=== PATIENT | female | born 1955 | race Caucasian/White ===

== ENCOUNTER 2018-10-18 11:52 | Inpatient (IN) ==
[2018-10-18 12:23] LABS: BLOOD TYPE ARTERIAL; SAMPLE BLOOD
[2018-10-18 12:24] LABS: HCO3-(ACT) 28.7 mmoll (20.0-26.0); METHB 1.1 % (0.0-1.5); O2(CT) 19.6 mL/dL (15.0-23.0); O2HB 94.7 % (95.0-99.0); PCO2(98.6) 44 mmHg (35-45); PO2(98.6) 86 mmHg (60-100); SAO2 97.8 % (95.0-100.0); THB 14.7 g/dL (11.5-17.4); pH(98.6) 7.44 (7.35-7.45)
[2018-10-18 12:26] LABS: ALLEN TEST YES; MODALITY CANNULA
[2018-10-18 12:53] LABS: BASO# 0.03 X1000 (0.0-0.2); BASO% 0.2 % (0.0-0.8); EOS# 0.14 X1000 (0.0-0.7); EOS% 1.1 % (0.0-10.0); HEMATOCRIT 41.6 % (37.0-47.0); IMM GRAN# 0.07 X1000 (0.0-0.04); IMM GRAN% 0.6 % (0.0-0.5); LYMPH# 1.24 X1000 (1.2-3.4); LYMPH% 9.8 % (20.5-51.1); MCHC 33.7 g/dL (33-37); MONO# 0.53 X1000 (0.11-0.59); MONO% 4.2 % (1.7-9.3); MPV 9.6 FL (7.4-10.4); NEUT# 10.66 X1000 (1.4-6.5); NEUT% 84.1 % (42.2-75.2); PLT 290 X1000 (130-400); RBC 4.52 XMIL (4.2-5.4); RDW 13.2 % (11.5-14.5); WBC 12.67 X1000 (4.8-10.8)
[2018-10-18 13:20] LABS: AGAP 12; ALBUMIN 4.4 g/dL (3.5-5.0); ALKALINE PHOSPHATASE 60 U/L (32-104); BUN 8 mg/dL (8-22); CALCIUM 9.6 mg/dL (8.8-10.2); CHLORIDE 97 mmol/L (98-107); COSMO 277; CREATININE 0.8 mg/dL (0.5-0.9); ESTIMATED GFR > 60; GLUCOSE 110 mg/dL (70-104); GOT 13 U/L (10-30); GPT 12 U/L (10-36); POTASSIUM 3.9 mmol/L (3.5-5.1); SODIUM 139 mmol/L (136-145); TCO2 30 mmol/L (25-35); TOTAL PROTEIN 7.2 g/dL (6.3-8.3)
--- NOTE | 2018-10-18 13:47 | Diag Imaging Result Doc PS360 ---
EXAM: CHEST-2 VIEWS - 10/18/2018 HISTORY: copd sob TECHNIQUE: Chest two views COMPARISON: 03/15/2015 FINDINGS: Heart size is normal. There are COPD changes with mildly hyperexpanded lungs. There is mild scarring which is most prominent at the bases. The lungs appear to be clear of acute changes. There is no pleural effusion or pneumothorax identified. IMPRESSION: COPD changes and mild scarring. No acute changes. Electronically signed by Ramy Carter 10/18/2018 1:45 PM
--- NOTE | 2018-10-18 14:28 | PROVIDER DOCUMENTATION ---
This chart was entered by Sharon Loera Scribe, acting as scribe for Sanjay Carreno MD. HPI-Respiratory General - General Chief Complaint: General Adult Stated Complaint: SOB / COPD Time Seen by Provider: 10/18/18 12:11 Source: patient Allergies/Adverse Reactions: Patient Allergies Allergy/AdvReac Type Severity Reaction Status Date / Time Penicillins Allergy Mild HIVES Verified 03/15/15 00:31 Home Medications: Home Medication List Medication Instructions Recorded Confirmed Last Taken Type Albuterol Sulfate [Ventolin Hfa] 60 puff IH PRN PRN 07/05/14 03/15/15 Unknown History Bisoprolol Fumarate/Hctz 1 each PO DAILY 07/05/14 03/15/15 07/05/14 05:30 History [Bisoprolol-Hctz 5-6.25 mg Tab] Doxycycline [Vibramycin] 100 mg PO BID #20 tablet 07/05/14 03/15/15 Unknown Rx Ibuprofen [Motrin] 600 mg PO Q6H 07/05/14 03/15/15 07/05/14 05:30 History Ipratropium/Albuterol INH 1 puff INH RTQ6H 07/05/14 03/15/15 07/05/14 05:30 History [Combivent Respimat Inhaler] Levothyroxine [Synthroid] 50 microgm PO DAILY 07/05/14 03/15/15 07/05/14 05:30 History PRAVAstatin [Pravachol] 20 mg PO DAILY 07/05/14 03/15/15 07/05/14 05:30 History Prednisone 20 mg PO BID #10 tablet 07/05/14 03/15/15 Unknown Rx Azithromycin [Zithromax Z-Frankie] 250 mg PO DIRECTED #1 pkg 03/15/15 Unknown Rx Methylprednisolone [Medrol Dosepak] 4 mg PO DIRECTED #1 package 03/15/15 Unknown Rx - History of Present Illness-Resp Nature of Presenting Problem: 63 y/o female with history of COPD presents to the ED with complaint of increasing SOB. The patient states she has been sick with sinus congestion for the past week and feels as if she has had some fever but did not measure it with SOB worsening since last night causing her to be unable to sleep. The patient is on 2 liters oxygen continuously at home as well as takes nebulizer treatments. The patient states her O2 sats drop into the low 80s when walking but returns to 97 percent when sitting. Allergy to penicillin. Severity in ED: reports: moderate Onset/Duration: reports: 1 week ago (worsening since last night) Timing: reports: getting worse Episode Frequency: chronic episodes Current Respiratory Medication Therapy: Initiated see nurses note Modifying Factors: worse with: exertion Associated Symptoms: reports: shortness of breath Similar Symptoms Previously?: Yes Recently seen or treated by another doctor?: No Review of Systems - Adult - REVIEW OF SYSTEMS - ADULT Constitutional: reports: fever (not measured). denies: weight gain, weight loss Eyes: reports: no symptoms reported Ears, Nose, Mouth & Throat: reports: no symptoms reported Cardiovascular: reports: no symptoms reported Respiratory: reports: dyspnea on exertion, shortness of breath. denies: hemoptysis Gastrointestinal: denies: diarrhea, nausea, vomiting Genitourinary: reports: no symptoms reported Musculoskeletal: reports: no symptoms reported Integumentary: reports: no symptoms reported Neurological: reports: no symptoms reported Psychiatric: reports: no symptoms reported Endocrine: reports: no symptoms reported Hematologic/Lymphatic: reports: no symptoms reported Allergic/Immunologic: reports: no symptoms reported All Other Systems: Reviewed and Negative Past History - Adult - PAST MEDICAL HISTORY-ADULT Review of Records: reports: Old Records Reviewed, Nursing Assessment Review, Medications Reviewed Cardiovascular: reports: hyperlipidemia. denies: cardiac disease, CAD Respiratory: reports: COPD, pneumonia Endocrine/Immune: reports: thyroid disorder. denies: Diabetes - IMMUNIZATION STATUS Childhood Immunizations: See Nurse Assessment Flu Vaccine: See Nurse Assessment - SOCIAL HISTORY Smoking: other (former smoker) Substance Use: denies Physical Exam-General - PHYSICAL EXAM-ADULT Initial Vital Signs Reviewed: Yes - CONSTITUTIONAL General Appearance: alert, moderate distress - EYES Eyes: PERRL/EOMI - HEAD, EARS, NOSE, MOUTH & THROAT HENMT: normocephalic/atraumatic, moist mucous membranes - NECK Neck: full range of motion, supple - RESPIRATORY Respiratory: other (egophony right lower lobe,minimal air movement, hyperinflated, whispered pectorliquy) - CARDIOVASCULAR Cardiovascular: no gallop, no murmur - MUSCULOSKELETAL Back Exam: no vertebral tenderness, other (scar from previous surgery) - SKIN Integumentary: normal color, warm/dry - NEUROLOGIC Neurologic: grossly normal Progress - PLAN OF CARE/RESULTS Progress/Plan/Lab Results: Vital Signs - 8 hr 10/18/18 11:59 10/18/18 12:47 10/18/18 14:03 Temperature 98 F Pulse Rate 74 71 74 Respiratory Rate 20 26 H 30 H Blood Pressure 160/78 155/77 158/94 O2 Sat by Pulse Oximetry 96 98 99 Laboratory Results - last 24 hr 10/18/18 10/18/18 10/18/18 12:08 12:33 12:33 WBC 12.67 H RBC 4.52 Hgb 14.0 Hct 41.6 MCV 92.0 MCH 31.0 MCHC 33.7 RDW Std Deviation 13.2 Plt Count 290 MPV 9.6 Immature Gran % (Auto) 0.6 H Neut % (Auto) 84.1 H Lymph % (Auto) 9.8 L [place] % (Auto) 4.2 Eos % (Auto) 1.1 Baso % (Auto) 0.2 Immature Gran # (Auto) 0.07 H Neut # (Auto) 10.66 H Lymph # (Auto) 1.24 [place] # (Auto) 0.53 Eos # (Auto) 0.14 Baso # (Auto) 0.03 Specimen Type ARTERIAL Sample Site L RADIAL pH 7.44 pCO2 44 pO2 86 HCO3 28.7 H Base Excess 5.0 H Oxyhemoglobin 94.7 L ABG O2 Sat (Calculated) 19.6 ABG O2 Saturation 97.8 ABG Carboxyhemoglobin 2.10 ABG Methemoglobin 1.1 Vikas Test YES A-a O2 Difference 59.0 Total Hemoglobin 14.7 Lactate 1.70 Liter Flow 2.0 Blood Gas Modality CANNULA FiO2 % 28.0 Sodium 139 Potassium 3.9 Chloride 97 L Carbon Dioxide 30 Anion Gap 12 BUN 8 Creatinine 0.8 Estimated GFR/1.73 m2 > 60 BUN/Creatinine Ratio 10 Glucose 110 H Calculated Osmolality 277 Calcium 9.6 Total Bilirubin 0.30 AST 13 ALT 12 Alkaline Phosphatase 60 [id number]-Hvxqvxmntgi Pept Total Protein 7.2 Albumin 4.4 Globulin 3.0 Albumin/Globulin Ratio 2.0 10/18/18 12:33 WBC RBC Hgb Hct MCV MCH MCHC RDW Std Deviation Plt Count MPV Immature Gran % (Auto) Neut % (Auto) Lymph % (Auto) [place] % (Auto) Eos % (Auto) Baso % (Auto) Immature Gran # (Auto) Neut # (Auto) Lymph # (Auto) [place] # (Auto) Eos # (Auto) Baso # (Auto) Specimen Type Sample Site pH pCO2 pO2 HCO3 Base Excess Oxyhemoglobin ABG O2 Sat (Calculated) ABG O2 Saturation ABG Carboxyhemoglobin ABG Methemoglobin Vikas Test A-a O2 Difference Total Hemoglobin Lactate Liter Flow Blood Gas Modality FiO2 % Sodium Potassium Chloride Carbon Dioxide Anion Gap BUN Creatinine Estimated GFR/1.73 m2 BUN/Creatinine Ratio Glucose Calculated Osmolality Calcium Total Bilirubin AST ALT Alkaline Phosphatase [id number]-Fphfrrlpdbd Pept 347 H Total Protein Albumin Globulin Albumin/Globulin Ratio Orders Category Date Time Status Cardiac Monitoring DIRECTED Care 10/18/18 12:02 Active Oxygen Therapy- ED Nursing DIRECTED Care 10/18/18 12:04 Active CHEST-2 VIEWS [RAD] Stat Exams 10/18/18 12:02 Completed ABG [RESP] Routine Lab 10/18/18 12:08 Completed CBC WITH DIFF [HEME] Stat Lab 10/18/18 12:33 Completed COMPREHENSIVE METABOLIC PANEL [CHEM] Stat Lab 10/18/18 12:33 Completed PRO B-NATRIURETIC PEPTIDE Stat Lab 10/18/18 12:33 Completed EKG [EKG] Stat Ther 10/18/18 12:02 Ordered Transfer/Admit Order [TRANSFER] Routine Transfer 10/18/18 14:20 Ordered 1415 The patient's respiratory rate is 28. Will consult with Dr. Stuart. Result Diagrams: 10/18/18 12:33 10/18/18 12:33 - EKG 1 Time of EKG reading by physician:: 12:27 EKG Read and Signed by:: Sanajy Carreno EKG Interpretation (*Must complete 3 of following elements*): Abnormal Rate: 67 Rhythm: sinus w/arrhythmia w/occasional PVC [place]: normal ST Wave: non-specific ST changes - XRAY 1 XRAY Study: Chest Impression: Abnormal (EXAM: CHEST-2 VIEWS - 10/18/2018 HISTORY: copd sob TECHNIQUE: Chest two views COMPARISON: 03/15/2015 FINDINGS: Heart size is normal. There are COPD changes with mildly hyperexpanded lungs. There is mild scarring which is most prominent at the bases. The lungs appear to be clear of acute changes. There is no pleural effusion or pneumothorax identified. IMPRESSION: COPD changes and mild scarring. No acute changes. Electronically signed by Ramy Carter 10/18/2018 1:45 PM) - CONSULTS/PCP/HOSPITALIST Notification #1 *Consult/PCP/Hospitalist*: Dr. Stuart Time Discussed: 14:18 Reason/Comments: COPD, respiratory rate 28 Consult Disposition: Admit Departure - Departure Date of Disposition Decision: 10/18/18 Time of Disposition Decision: 14:20 DIAGNOSIS: COPD with exacerbation Disposition: ADMITTED INPATIENT 09 Certified Medical Emergency: Emergent Condition: Stable Referrals and Follow-Ups: Mik Lam MD [Primary Care Provider] - - Critical Care Note This patient required my direct & personal management of CC.: No Attestation - Physician/ OZIEL Attestation Patient care was provided by Advanced Practice Provider:: No The physician spent face to face time with patient:: Yes Advanced Practice Provider documentation review:: Supervising physician onsite and consulted in the evaluation and care of this patient. The physician did have a face to face encounter with the patient. This chart was documented by the indicated scribe, (Sharon Loera, Vlad) and accurately reflects the services I performed and decisions made by me, Sanjay Carreno MD, as attested by the provider's signature.
[2018-10-18] MEDS ORDERED: ROCEPHIN 1 GM in NS 50 ML IV ONE (15:21)
[2018-10-18] MEDS ORDERED: SOLU-MEDROL IV ONE (15:21)
[2018-10-18] MEDS: DUONEB (A & A) INH SCH ×3 (15:33→22:51)
--- NOTE | 2018-10-18 15:56 | EKG Report ---
Test Performed on : 10/18/2018 12:27:39 PM Test Reason : copd sob Blood Pressure : / mmHG Vent. Rate : 067 BPM Atrial Rate : 067 BPM P-R Int : 150 ms QRS Dur : 094 ms QT Int : 388 ms P-R-T Axes : 005 072 132 degrees QTc Int : 409 ms Sinus rhythm. with sinus arrhythmia. with occasional premature ventricular complexes. Nonspecific ST and T wave abnormality Abnormal ECG When compared with ECG of 05-JUL-2014 06:55, premature ventricular complexes. are now present premature supraventricular complexes. are no longer present Nonspecific T wave abnormality now evident in Inferior leads Nonspecific T wave abnormality, worse in Anterolateral leads Unconfirmed Result
[2018-10-18] MEDS ORDERED: DUONEB (A & A) INH PRN ×2 (18:40→21:07)
[2018-10-18] MEDS ORDERED: SALINE LOCK IV FLUID XX ONE (21:06)
[2018-10-18] MEDS ORDERED: ZOFRAN IV PRN (21:07)
[2018-10-18] MEDS ORDERED: TYLENOL PO PRN (21:07)
[2018-10-18] MEDS: SOLU-MEDROL IV SCH (22:07)
--- NOTE | 2018-10-18 23:11 | HISTORY AND PHYSICAL ---
CHIEF COMPLAINT: Shortness of breath. HISTORY OF PRESENT ILLNESS: Patient is a very pleasant elderly female who has a known history of COPD. She presented to the hospital with chief complaint of shortness of breath, cough, congestion. Notes that she is only on 2 L at home. She has breathing treatments which she has been using. States, however, she has been increasing work of breathing, increased shortness of breath for the past 2 weeks or so and it continued to worsen over the past 2 days, which was the impetus for her to come to the ER. Denies any chest pains. ALLERGIES: Penicillin causing hives. MEDICATIONS: 1. Albuterol. 2. Bisoprolol/hydrochlorothiazide 5/6.25. 3. Doxycycline although not currently taking. 4. Synthroid 50. 5. Pravachol 20. 6. Nebulized treatments. REVIEW OF SYSTEMS: As noted above. Patient denies any fevers or chills. States she has had increased cough. No real production. No longer smokes. Has not been around smoke, but was around some chemical, [employer], in the past few days. Denies any dysuria, urinary frequency, urgency, hesitancy. Denies constipation, melena, hematochezia. Denies any skin rashes, weight loss or weight gain. PAST MEDICAL HISTORY: Hypothyroidism, hypertension, COPD, hyperlipidemia. FAMILY HISTORY: Positive for COPD. SOCIAL HISTORY: Patient is a former smoker. Does not drink or use illicit substances. PHYSICAL EXAMINATION: VITAL SIGNS: Reviewed and stable. Temperature 98 degrees, pulse 74, respiratory 20, BP 160/78, saturating 96% on 3 L. GENERAL: Patient is a very pleasant. She is awake, alert. She is in mild respiratory distress currently. She was in moderate distress earlier prior to several breathing treatments from the ER. HEENT: Normocephalic. NECK: Supple. CARDIOVASCULAR: Regular rate. No murmurs. CHEST: Currently clear and nonlabored although just received a breathing treatment and she is lying in the bed. She does have decreased breath sounds bilaterally but equal. No current wheezing. No crackles. ABDOMEN: Soft, nondistended. EXTREMITIES: Moves all extremities. NEUROLOGIC: No changes. SKIN: Warm and dry. No rashes. ASSESSMENT: 1. Chronic obstructive pulmonary disease with moderate exacerbation, improved. 2. Acute on chronic hypoxic respiratory failure. 3. Hypertension. 4. Hypothyroidism. 5. High cholesterol. PLAN: We will continue patient in the hospital, breathing treatments, oxygen, steroids and we will follow. We will continue her home medications. cc: Andrez Stuart MD
[2018-10-19] MEDS: DUONEB (A & A) INH SCH ×11 (03:22→23:19)
[2018-10-19] MEDS: SOLU-MEDROL IV SCH ×3 (05:20→22:17)
[2018-10-19 06:58] LABS: BASO# 0.01 X1000 (0.0-0.2); BASO% 0.1 % (0.0-0.8); HEMATOCRIT 42.4 % (37.0-47.0); HEMOGLOBIN 14.3 g/dL (12.0-16.0); IMM GRAN# 0.08 X1000 (0.0-0.04); IMM GRAN% 0.8 % (0.0-0.5); LYMPH# 0.85 X1000 (1.2-3.4); MCH 30.8 PG (27-31); MCHC 33.7 g/dL (33-37); MCV 91.4 FL (81-99); MONO# 0.12 X1000 (0.11-0.59); MONO% 1.1 % (1.7-9.3); MPV 9.5 FL (7.4-10.4); PLT 325 X1000 (130-400); RBC 4.64 XMIL (4.2-5.4); RDW 13.3 % (11.5-14.5); WBC 10.56 X1000 (4.8-10.8)
[2018-10-19 06:59] LABS: LYMPHS 7 % (21-51); SEGS 93 % (42-75)
[2018-10-19 07:03] LABS: AGAP 15; ALBUMIN 4.3 g/dL (3.5-5.0); ALKALINE PHOSPHATASE 58 U/L (32-104); BUN 12 mg/dL (8-22); CALCIUM 9.2 mg/dL (8.8-10.2); CHLORIDE 95 mmol/L (98-107); COSMO 278; CREATININE 0.9 mg/dL (0.5-0.9); ESTIMATED GFR > 60; GLUCOSE 244 mg/dL (70-104); GOT 15 U/L (10-30); GPT 13 U/L (10-36); POTASSIUM 4.2 mmol/L (3.5-5.1); SODIUM 135 mmol/L (136-145); TCO2 25 mmol/L (25-35); TOTAL PROTEIN 7.5 g/dL (6.3-8.3)
[2018-10-19] MEDS: ZOLOFT PO SCH (08:57)
[2018-10-19] MEDS ORDERED: SYNTHROID PO SCH (09:00)
[2018-10-19] MEDS ORDERED: ZIAC 5/6.25 MG PO ONE (17:00)
[2018-10-19] MEDS: LIPITOR PO SCH (22:17)
[2018-10-20] MEDS: DUONEB (A & A) INH SCH ×7 (03:13→22:39)
[2018-10-20 05:29] LABS: AGAP 11; BUN 18 mg/dL (8-22); CALCIUM 9.7 mg/dL (8.8-10.2); CHLORIDE 98 mmol/L (98-107); COSMO 282; CREATININE 0.9 mg/dL (0.5-0.9); ESTIMATED GFR > 60; GLUCOSE 215 mg/dL (70-104); POTASSIUM 4.5 mmol/L (3.5-5.1); SODIUM 137 mmol/L (136-145); TCO2 28 mmol/L (25-35)
[2018-10-20 05:37] LABS: EOS# 0.03 X1000 (0.0-0.7); EOS% 0.2 % (0.0-10.0); HEMATOCRIT 42.6 % (37.0-47.0); HEMOGLOBIN 13.9 g/dL (12.0-16.0); IMM GRAN# 0.14 X1000 (0.0-0.04); IMM GRAN% 0.8 % (0.0-0.5); LYMPH# 0.85 X1000 (1.2-3.4); MCH 30.3 PG (27-31); MCHC 32.6 g/dL (33-37); MCV 92.8 FL (81-99); MONO# 0.61 X1000 (0.11-0.59); MONO% 3.6 % (1.7-9.3); MPV 9.9 FL (7.4-10.4); NEUT# 15.53 X1000 (1.4-6.5); NEUT% 90.4 % (42.2-75.2); PLT 342 X1000 (130-400); RBC 4.59 XMIL (4.2-5.4); RDW 13.4 % (11.5-14.5); WBC 17.16 X1000 (4.8-10.8)
[2018-10-20] MEDS: SYNTHROID PO SCH (06:07)
[2018-10-20] MEDS: ZOLOFT PO SCH ×2 (06:07→11:49)
[2018-10-20] MEDS: SOLU-MEDROL IV SCH ×2 (06:07→14:49)
[2018-10-20] MEDS: LOVENOX SUBQ SCH (06:07)
[2018-10-20] MEDS: ZIAC 5/6.25 MG PO SCH ×2 (06:07→11:49)
[2018-10-20 06:53] LABS: BANDS 1 % (0-1); LYMPHS 7 % (21-51); MONO 2 % (1-9); SEGS 90 % (42-75)
[2018-10-20] MEDS: DULERA 200 MCG/5 MCG INHALER INH SCH (08:15)
[2018-10-20] MEDS ORDERED: SYMBICORT 80/4.5 MICROGM INHALER INH SCH (19:30)
[2018-10-20] MEDS ORDERED: XANAX PO PRN (20:07)
[2018-10-20] MEDS ORDERED: TUMS EXTRA STRENGTH PO PRN (20:07)
[2018-10-20] MEDS: LIPITOR PO SCH (20:42)
[2018-10-21] MEDS: DUONEB (A & A) INH SCH ×6 (02:11→14:46)
[2018-10-21] MEDS: SOLU-MEDROL IV SCH ×2 (03:01→16:33)
[2018-10-21] MEDS: SYNTHROID PO SCH (05:28)
[2018-10-21] MEDS: ZIAC 5/6.25 MG PO SCH ×2 (05:28→08:01)
[2018-10-21] MEDS: ZOLOFT PO SCH ×2 (05:28→08:01)
[2018-10-21] MEDS: LOVENOX SUBQ SCH (05:28)
[2018-10-21 05:56] LABS: BASO# 0.01 X1000 (0.0-0.2); BASO% 0.1 % (0.0-0.8); EOS# 0.02 X1000 (0.0-0.7); EOS% 0.1 % (0.0-10.0); HEMATOCRIT 42.6 % (37.0-47.0); IMM GRAN# 0.16 X1000 (0.0-0.04); IMM GRAN% 1.1 % (0.0-0.5); LYMPH# 0.95 X1000 (1.2-3.4); LYMPH% 6.6 % (20.5-51.1); MCH 30.8 PG (27-31); MCHC 32.9 g/dL (33-37); MCV 93.6 FL (81-99); MONO# 0.76 X1000 (0.11-0.59); MONO% 5.3 % (1.7-9.3); MPV 9.7 FL (7.4-10.4); NEUT# 12.42 X1000 (1.4-6.5); NEUT% 86.8 % (42.2-75.2); PLT 285 X1000 (130-400); RBC 4.55 XMIL (4.2-5.4); RDW 13.5 % (11.5-14.5); WBC 14.32 X1000 (4.8-10.8)
[2018-10-21 05:59] LABS: HEMOGLOBIN A1C 5.9 % (4.8-6.0)
[2018-10-21 06:09] LABS: AGAP 10; BUN 15 mg/dL (8-22); CALCIUM 9.9 mg/dL (8.8-10.2); CHLORIDE 99 mmol/L (98-107); COSMO 282; CREATININE 0.8 mg/dL (0.5-0.9); ESTIMATED GFR > 60; GLUCOSE 139 mg/dL (70-104); SODIUM 140 mmol/L (136-145); TCO2 30 mmol/L (25-35)
[2018-10-21 06:46] LABS: LYMPHS 8 % (21-51); MONO 7 % (1-9); SEGS 85 % (42-75)
[2018-10-21 06:47] LABS: MICROCYTOSIS OCCASIONAL
[2018-10-21] MEDS: DULERA 200 MCG/5 MCG INHALER INH SCH (07:08)
[2018-10-21] MEDS: HUMULIN R (PARKWAY) SUBQ SCH ×4 (08:01→17:55)
[2018-10-21 14:11] VITALS: BP 128/55
--- NOTE | 2018-10-21 15:45 | PROGRESS NOTE ---
DATE: 10/19/2018 SUBJECTIVE: The patient has no major complaints. OBJECTIVE: Vital Signs: Blood pressure is 175/73, heart rate 94, respiratory rate 24, and saturations of 91% on 2 L. Cardiovascular: Regular rate and rhythm. Pulmonary: Bilateral breath sounds are clear to auscultation. GI: Abdomen is soft, nontender, and nondistended. Bowel sounds are positive. LABORATORY DATA: White count is 10. Hemoglobin and hematocrit are 14 and 42. PROBLEM LIST: 1. Acute chronic obstructive pulmonary disease exacerbation. Appears to be improving. We will wean steroids. Continue breathing treatments. She is empirically on antibiotics although I do not think she clearly has an infection based on her chest x-ray as far as she does not have pneumonia. 2. Hypertension. Resume her regular medications and follow. 3. Hypothyroidism. We will check her TSH and follow. DISPOSITION: Anticipate discharge soon. Right now as far as medications she only takes Dulera daily and albuterol p.r.n. We may need to adjust her medicines accordingly. Because she is on Dulera we may need to consider adding a long-acting bronchodilator although the frequency of attacks is not that common. She does not report any dysphagia to me. We will continue to follow closely. cc: William Whyte MD
[2018-10-21] MEDS ORDERED: DOXYCYCLINE PO ONE (15:56)
--- NOTE | 2018-10-22 14:37 | DISCHARGE SUMMARY ---
ADMISSION DATE: 10/18/2018 DISCHARGE DATE: 10/21/2018 ADDENDUM REPORT Discharge addendum. DISCHARGE DIAGNOSES: 1. Chronic obstructive pulmonary disease exacerbation. 2. Chronic hypoxia. Briefly this is a 63-year-old female. She has admitted for COPD exacerbation. Day of discharge, she is still having some little bit intermittent wheezing, but overall improved. She feels good about going home. I think she is stable to go home. We will do a steroid taper, doxycycline. She has not been on any antibiotics while she is here. I think I am going to give her a dose of Rocephin before she goes, and discharge her on some doxycycline. She has had some steroid-induced hyperglycemia. Her A1c is only 5. I encouraged her to follow diabetic diet and get re-evaluated after she follows up with her PCP, and I recommend outpatient pulmonary follow-up as well. This is a [id number] encounter note with Kasey Acevedo. COORDINATION TIME: A 32-minute discharge. cc: William Whyte MD
--- NOTE | 2018-10-23 15:48 | DISCHARGE SUMMARY ---
ADMISSION DATE: 10/18/2018 DISCHARGE DATE: 10/21/2018 ADMISSION DIAGNOSIS: 1. COPD with mild to moderate exacerbation. 2. Acute on chronic hypoxemic respiratory failure. 3. Hypertension. 4. Hypothyroidism. 5. Hyperlipidemia. DISCHARGE DIAGNOSES: 1. Acute on chronic obstructive pulmonary disease exacerbation improving with steroids, nebulizers. There was no obvious infection on the chest x-ray. 2. Hypertension. Continue home medications. 3. Hypothyroidism. CONSULTATIONS: None. SURGERIES AND PROCEDURES: None. HOSPITAL COURSE: Jeanne Mckeon is a 63-year-old female with a medical history of COPD presented with a complaint of shortness of breath, cough, and congestion. She is on continuous home oxygen of 2 L and breathing treatments. She has been using those at home but apparently still had increased work of breathing along with shortness breath for at least 2 weeks prior to admission. There were no chest pains at that time. She was admitted, started on respiratory treatments, oxygen, steroids, and prior to discharge was initiated also on empiric antibiotic therapy. Culture of the sputum was obtained. It did show some gram-positive cocci but otherwise just normal fidelia. White count was up, it went up to as high as 17,000 and was likely steroid induced. It dropped back down to 14,000 prior to discharge. She was afebrile while she was here. Never required more than the 2 L of oxygen that she uses at home. She was improved. She was breathing better and she is ready for discharge home. DISCHARGE VITAL SIGNS: Temperature 98.0 degrees, heart rate 86, respiratory rate 19, blood pressure 128/55, O2 saturation 98% on 2 L nasal cannula. DISCHARGE LABORATORY DATA: White blood cells 14,000, hemoglobin 14, hematocrit 42, platelet count 285,000. Sodium 140, potassium 4.0, BUN 15, creatinine 0.8, glucose 139, calcium 9.9, TSH was 0.21, free T4 was 1.32. PERTINENT IMAGING: Chest x-ray: COPD changes and mild scarring, nothing acute. EKGs showed sinus rhythm with sinus arrhythmia. Occasional PVCs and ventricular rate 67, QTc was 409. MEDICATIONS: 1. Atorvastatin calcium 40 mg p.o. nightly. 2. Bisoprolol/hydrochlorothiazide 1 tab p.o. daily. 3. Dulera 2 puffs inhaled. 4. Sertraline HCL 50 mg p.o. daily. 5. Synthroid 75 mcg p.o. daily. 6. Albuterol/Atrovent nebs every 6 hours as needed. 7. Prednisone taper. 8. Doxycycline 100 mg p.o. twice a day for 7 days. DISCHARGE DIET: Diabetic. Low carb diet while on steroids. DISCHARGE ACTIVITY: As tolerated. DISCHARGE PHYSICIAN FOLLOW UP: Dr. Mik Lam. Follow up with her primary care provider 1 to 2 weeks. DISCHARGE INSTRUCTIONS: If her condition changes, contact physician and/or return to the emergency department. Changes may include, but are not limited to, shortness of breath, increased fatigue, excessive bleeding, unexplained weight loss or gain, vaginal pain, signs or symptoms of infection. Seek attention for worsening dyspnea or shortness of breath. DISCHARGE DISPOSITION: Home. Dictated by TIFFANI Posey for William Whyte MD cc: TIFFANI Posey MD
== END 2018-10-21 17:25 | disposition home or self-care (01) | DRG 191 ==
LOC: P.ED 11:52 → SUATTDRO 11:53 → OBSVTOIN 11:53 → INTOOBSV 11:53 → P.MEDSURG 11:53
PROVIDERS: ATTEND Internal Medicine
CPT/HCPCS: 36415; 71020; 71046; 80048; 80053; 82805; 82948; 83036; 83880; 84439; 84443; 85025; 87070; 87205; 93005; 94640; 94761; 94799; 99285; A9270; J0696; J1650; J1815; J2920; J2930; XXXXX

== ENCOUNTER 2018-11-26 00:41 | Inpatient (IN) ==
[2018-11-26] MEDS ORDERED: SOLU-MEDROL IV ONE (00:49)
[2018-11-26] MEDS ORDERED: DUONEB (A & A) INH ONE ×2 (00:49→01:23)
[2018-11-26] MEDS ORDERED: NS 500 ML IV ONE (00:51)
[2018-11-26 01:05] LABS: BE 2.3 mmoll (-3.0-3.0); BLOOD TYPE ARTERIAL; HCO3-(ACT) 26.6 mmoll (20.0-26.0); METHB 1.5 % (0.0-1.5); O2(CT) 19.1 mL/dL (15.0-23.0); O2HB 94.4 % (95.0-99.0); PO2(98.6) 101 mmHg (60-100); SAMPLE BLOOD; SAO2 98.7 % (95.0-100.0); THB 14.3 g/dL (11.5-17.4); pH(98.6) 7.32 (7.35-7.45)
[2018-11-26 01:08] LABS: ALLEN TEST YES; MODALITY CANNULA; PCO2(98.6) 58 mmHg (35-45)
[2018-11-26] MEDS ORDERED: DUONEB (A & A) ONE (01:17)
[2018-11-26] MEDS ORDERED: ATIVAN IV ONE (01:48)
--- NOTE | 2018-11-26 01:51 | PROVIDER DOCUMENTATION ---
This chart was entered by Zoila Moralez Scribe, acting as scribe for Luis Arita MD. HPI-Respiratory General - General Chief Complaint: Shortness of Breath Stated Complaint: SOB Time Seen by Provider: 11/26/18 00:42 Source: patient Allergies/Adverse Reactions: Patient Allergies Allergy/AdvReac Type Severity Reaction Status Date / Time Penicillins Allergy Mild HIVES Verified 03/15/15 00:31 Home Medications: Home Medication List Medication Instructions Recorded Confirmed Last Taken Type Bisoprolol Fumarate/Hctz 1 each PO DAILY 07/05/14 10/18/18 10/18/18 05:30 History [Bisoprolol-Hctz 5-6.25 mg Tab] Levothyroxine [Synthroid] 75 microgm PO DAILY 07/05/14 10/18/18 10/18/18 05:30 History Atorvastatin Calcium 40 mg PO HS 10/18/18 10/18/18 10/17/18 21:00 History Mometasone/Formoterol [Dulera 200 2 puff INHALATION DAILY 10/18/18 10/18/18 10/18/18 05:30 History Mcg/5 Mcg Inhaler] Sertraline HCl 50 mg PO DAILY 10/18/18 10/18/18 10/18/18 05:30 History Albuterol 2.5MG/Ipratrop 0.5MG 3 ml INH RTQ6H #120 neb 10/21/18 Unknown Rx [Duoneb] Doxycycline 100 mg PO BID #14 tab 10/21/18 Unknown Rx Prednisone See Taper PO DAILY #30 tab 10/21/18 Unknown Rx - History of Present Illness-Resp Nature of Presenting Problem: 63 y/o female presents to ED with SOB onset 1 hour prior to arrival. Pt reports her symptoms woke her up from her sleep. Pt states she has hx COPD. Pt is alert and oriented. Quality of Pain: reports: none Severity in ED: reports: mild Onset/Duration: reports: 1 hour ago Timing: reports: still present Context: reports: other (hx COPD) Exposure: reports: other (hx COPD) Cough Quality/Degree: reports: no cough Episode Frequency: chronic episodes (hx COPD) Current Respiratory Medication Therapy: Initiated see nurses note Modifying Factors: improves with: nothing Associated Symptoms: reports: shortness of breath, short of breath Similar Symptoms Previously?: Yes (hx COPD) Recently seen or treated by another doctor?: No Review of Systems - Adult - REVIEW OF SYSTEMS - ADULT Constitutional: denies: chills, fever Eyes: reports: no symptoms reported Ears, Nose, Mouth & Throat: reports: no symptoms reported Cardiovascular: denies: chest pain, palpitations Respiratory: reports: shortness of breath. denies: cough Gastrointestinal: denies: abdominal pain, diarrhea, nausea, vomiting Genitourinary: reports: no symptoms reported Musculoskeletal: denies: back pain, joint pain Integumentary: reports: no symptoms reported Neurological: denies: dizziness/vertigo, seizure Psychiatric: reports: no symptoms reported Endocrine: reports: no symptoms reported Hematologic/Lymphatic: reports: no symptoms reported Allergic/Immunologic: reports: no symptoms reported All Other Systems: Reviewed and Negative Past History - Adult - PAST MEDICAL HISTORY-ADULT Review of Records: reports: Old Records Reviewed, Nursing Assessment Review, Medications Reviewed Major Childhood Illnesses: reports: denies history Cardiovascular: reports: HTN, hyperlipidemia. denies: cardiac disease, CAD Respiratory: reports: COPD, pneumonia Endocrine/Immune: reports: thyroid disorder. denies: Diabetes Other Conditions: reports: cataract/glaucoma - PRIOR SURGERIES/PROCEDURES Surgical/Procedure History: reports: pacemaker, back/neck, other (cataract removal) - IMMUNIZATION STATUS Childhood Immunizations: See Nurse Assessment Flu Vaccine: See Nurse Assessment - FAMILY HISTORY Family History: reviewed, not pertinent - SOCIAL HISTORY Smoking: quit greater than 1 year Substance Use: none/never Alcohol Use Frequency: never Living Situation: family Physical Exam-General - PHYSICAL EXAM-ADULT Initial Vital Signs Reviewed: Yes - CONSTITUTIONAL General Appearance: alert, moderate distress - EYES Eyes: PERRL/EOMI, pink conjunctivae - HEAD, EARS, NOSE, MOUTH & THROAT HENMT: normocephalic/atraumatic, normal ENT inspection. negative: moist mucous membranes (dry) - NECK Neck: non-tender, full range of motion - RESPIRATORY Respiratory: chest non-tender, respiratory distress (mild), decreased breath sounds, accessory muscle use, wheezing, increased rate - CARDIOVASCULAR Cardiovascular: tachycardia - GASTROINTESTINAL (ABDOMEN) Abdominal Exam: normal bowel sounds, non tender, soft - MUSCULOSKELETAL Back Exam: normal inspection, no CVA tenderness, no vertebral tenderness Extremity: normal range of motion, non-tender, normal gait - SKIN Integumentary: normal color, warm/dry - NEUROLOGIC Neurologic: grossly normal - PSYCHIATRIC Psych/Mental Status: normal mood/affect, normal thought content, normal thought process, oriented x 3 - HEART Score HEART Score: History: Slightly Suspicious HEART Score: ECG: Non-Specific Repolarization Disturbance/LBBB/PM HEART Score: Age: 45-65 Years HEART Score: Risk Factors for Atherosclerotic Disease: 1 or 2 Risk Factors HEART Score: Troponin: < or = Normal Limit Total HEART Score:: 3 Progress - PLAN OF CARE/RESULTS Progress/Plan/Lab Results: Vital Signs - 8 hr 11/26/18 00:42 11/26/18 01:09 11/26/18 03:04 Temperature 98.4 F Pulse Rate 103 H 99 H 113 H Respiratory Rate 26 H 24 16 Blood Pressure 160/104 120/60 O2 Sat by Pulse Oximetry 92 L 97 97 Laboratory Results - last 24 hr 11/26/18 11/26/18 11/26/18 00:40 01:30 01:30 WBC RBC Hgb Hct MCV MCH MCHC RDW Std Deviation Plt Count MPV Immature Gran % (Auto) Neut % (Auto) Lymph % (Auto) [place] % (Auto) Eos % (Auto) Baso % (Auto) Immature Gran # (Auto) Neut # (Auto) Lymph # (Auto) [place] # (Auto) Eos # (Auto) Baso # (Auto) PT INR PTT (Actin FS) Specimen Type ARTERIAL Sample Site L RADIAL pH 7.32 L pCO2 58 H* pO2 101 H HCO3 26.6 H Base Excess 2.3 Oxyhemoglobin 94.4 L ABG O2 Sat (Calculated) 19.1 ABG O2 Saturation 98.7 ABG Carboxyhemoglobin 2.90 H ABG Methemoglobin 1.5 Vikas Test YES A-a O2 Difference 83.0 Total Hemoglobin 14.3 Liter Flow 4.0 Blood Gas Modality CANNULA FiO2 % 36.0 Sodium Potassium Chloride Carbon Dioxide Anion Gap BUN Creatinine Estimated GFR/1.73 m2 BUN/Creatinine Ratio Glucose Calculated Osmolality Calcium Total Bilirubin AST ALT Alkaline Phosphatase Troponin T 0.022 [id number] Pept 872 H Total Protein Albumin Globulin Albumin/Globulin Ratio Plasma Lactate Urine Source Urine Color Urine Clarity Urine pH Ur Specific [place] Urine Protein Urine Ketones Urine Blood Urine Nitrite Urine Bilirubin Urine Urobilinogen Urine Microscopic RBC Urine WBC Urine Microscopic WBC Ur Epithelial Cells Urine Crystals Urine Bacteria Urine Casts Urine Yeast Urine Glucose 11/26/18 11/26/18 11/26/18 01:30 01:30 01:30 WBC 24.77 H RBC 4.61 Hgb 14.3 Hct 43.3 MCV 93.9 MCH 31.0 MCHC 33.0 RDW Std Deviation 14.3 Plt Count 299 MPV 9.6 Immature Gran % (Auto) 0.7 H Neut % (Auto) 84.2 H Lymph % (Auto) 7.7 L [place] % (Auto) 4.4 Eos % (Auto) 2.7 Baso % (Auto) 0.3 Immature Gran # (Auto) 0.17 H Neut # (Auto) 20.86 H Lymph # (Auto) 1.91 [place] # (Auto) 1.08 H Eos # (Auto) 0.68 Baso # (Auto) 0.07 PT 12.1 INR 0.85 PTT (Actin FS) 23.7 Specimen Type Sample Site pH pCO2 pO2 HCO3 Base Excess Oxyhemoglobin ABG O2 Sat (Calculated) ABG O2 Saturation ABG Carboxyhemoglobin ABG Methemoglobin Vikas Test A-a O2 Difference Total Hemoglobin Liter Flow Blood Gas Modality FiO2 % Sodium 143 Potassium 3.9 Chloride 100 Carbon Dioxide 32 Anion Gap 11 BUN 13 Creatinine 0.7 Estimated GFR/1.73 m2 > 60 BUN/Creatinine Ratio 19 Glucose 140 H Calculated Osmolality 287 Calcium 9.5 Total Bilirubin 0.30 AST 27 ALT 21 Alkaline Phosphatase 52 Troponin T [id number]-Rnxbvfxfuxv Pept Total Protein 6.6 Albumin 4.3 Globulin 2.0 Albumin/Globulin Ratio 2.0 Plasma Lactate Urine Source Urine Color Urine Clarity Urine pH Ur Specific Mer[place] Urine Protein Urine Ketones Urine Blood Urine Nitrite Urine Bilirubin Urine Urobilinogen Urine Microscopic RBC Urine WBC Urine Microscopic WBC Ur Epithelial Cells Urine Crystals Urine Bacteria Urine Casts Urine Yeast Urine Glucose 11/26/18 11/26/18 01:30 02:19 WBC RBC Hgb Hct MCV MCH MCHC RDW Std Deviation Plt Count MPV Immature Gran % (Auto) Neut % (Auto) Lymph % (Auto) [place] % (Auto) Eos % (Auto) Baso % (Auto) Immature Gran # (Auto) Neut # (Auto) Lymph # (Auto) [place] # (Auto) Eos # (Auto) Baso # (Auto) PT INR PTT (Actin FS) Specimen Type Sample Site pH pCO2 pO2 HCO3 Base Excess Oxyhemoglobin ABG O2 Sat (Calculated) ABG O2 Saturation ABG Carboxyhemoglobin ABG Methemoglobin Vikas Test A-a O2 Difference Total Hemoglobin Liter Flow Blood Gas Modality FiO2 % Sodium Potassium Chloride Carbon Dioxide Anion Gap BUN Creatinine Estimated GFR/1.73 m2 BUN/Creatinine Ratio Glucose Calculated Osmolality Calcium Total Bilirubin AST ALT Alkaline Phosphatase Troponin T Jnc-V-Aaetedccwoj Pept Total Protein Albumin Globulin Albumin/Globulin Ratio Plasma Lactate 1.7 Urine Source CATH Urine Color YELLOW Urine Clarity CLEAR Urine pH 7.0 Ur Specific [place] 1.010 Urine Protein NEGATIVE Urine Ketones NEGATIVE Urine Blood 1+ A Urine Nitrite NEGATIVE Urine Bilirubin NEGATIVE Urine Urobilinogen NORMAL Urine Microscopic RBC <10 Urine WBC NEGATIVE Urine Microscopic WBC NS Ur Epithelial Cells <10 Urine Crystals NONE SEEN Urine Bacteria 1+ Urine Casts NONE SEEN Urine Yeast NONE SEEN Urine Glucose NEGATIVE Orders Category Date Time Status Nursing- Obtain EKG ONCE Care 11/26/18 00:42 Active CHEST-1 VIEW [RAD] Stat Exams 11/26/18 00:43 Taken ABG [RESP] Routine Lab 11/26/18 00:40 Completed BLOOD CULTURE [BLDCUL] Stat Lab 11/26/18 02:05 Ordered BNP [PRO B-NATRIURETIC PEPTIDE] Stat Lab 11/26/18 01:30 Completed CBC WITH ELECTRONIC DIFF [HEME] Stat Lab 11/26/18 01:30 Completed COMPREHENSIVE METABOLIC PANEL [CHEM] Stat Lab 11/26/18 01:30 Completed LACTATE, PLASMA [CHEM] Stat Lab 11/26/18 01:30 Completed PT [PROTIME WITH INR] [COAG] Stat Lab 11/26/18 01:30 Completed PTT [COAG] Stat Lab 11/26/18 01:30 Completed TROPONIN T Lab 11/26/18 05:00 Uncollected TROPONIN T Lab 11/26/18 13:00 Uncollected TROPONIN T Lab 11/26/18 21:00 Uncollected TROPONIN T Stat Lab 11/26/18 01:30 Completed URINE CULTURE [RM] Routine Lab 11/26/18 03:02 Ordered ua [URINALYSIS PL W/POSS RFLX CULT] [URINALYSIS] Stat Lab 11/26/18 02:19 Completed 0.9% Sodium Chloride Inj [Ns] 500 ml Med 11/26/18 00:51 Discontinued IV 999 mls/hr Albuterol 2.5MG/Ipratrop 0.5MG [Duoneb (A & A)] Med 11/26/18 01:17 Discontinued 3 ml .ROUTE .STK-MED ONE Albuterol 2.5MG/Ipratrop 0.5MG [Duoneb (A & A)] Med 11/26/18 00:49 Discontinued 3 ml INH NOW ONE Albuterol 2.5MG/Ipratrop 0.5MG [Duoneb (A & A)] Med 11/26/18 01:23 Discontinued 3 ml INH NOW ONE Albuterol 2.5MG/Ipratrop 0.5MG [Duoneb (A & A)] Med 11/26/18 03:30 Active 3 ml INH RTQ4H Levofloxacin 500 mg/D5w [Levaquin 500 mg/D5w] Med 11/26/18 02:45 Active 500 mg in 100 ml IV Q24H Lorazepam [Ativan] Med 11/26/18 01:48 Discontinued 1 mg IV NOW ONE Methylprednisolone Sod Succ [Solu-Medrol] Med 11/26/18 00:49 Discontinued 125 mg IV NOW ONE Aerosol Treatments Routine Oth 11/26/18 00:50 Completed Aerosol Treatments Routine Oth 11/26/18 01:23 Completed Aerosol Treatments Routine Oth 11/26/18 02:32 Completed Aerosol Treatments Stat Oth 11/26/18 00:50 Completed Aerosol Treatments Stat Oth 11/26/18 01:23 Completed Aerosol Treatments Stat Oth 11/26/18 02:32 Completed EKG [EKG] Stat Ther 11/26/18 00:42 Ordered Result Diagrams: 11/26/18 01:30 11/26/18 01:30 - XRAY 1 XRAY Study: Chest Impression: See EMR Report - CONSULTS/PCP/HOSPITALIST Notification #1 *Consult/PCP/Hospitalist*: Dr. Stuart Time Discussed: 03:42 Reason/Comments: COPD exacerbation, pneumonia Consult Disposition: Admit Departure - Departure Date of Disposition Decision: 11/26/18 Time of Disposition Decision: 01:50 DIAGNOSIS: COPD exacerbation, Pneumonia Disposition: ADMITTED INPATIENT 09 Certified Medical Emergency: Emergent Condition: Fair Referrals and Follow-Ups: None,PCP [Primary Care Provider] - - Critical Care Note This patient required my direct & personal management of CC.: Yes Total Time (mins): 35 Critical Care Statement: This patient required my direct personal management to treat or rule out processes, the absence of which, could potentiallly result in sudden, clinically significant life or limb threatening deterioration. Attestation - Physician/ OZIEL Attestation Patient care was provided by Advanced Practice Provider:: No The physician spent face to face time with patient:: Yes Advanced Practice Provider documentation review:: Supervising physician onsite and consulted in the evaluation and care of this patient. The physician did have a face to face encounter with the patient. This chart was documented by the indicated scribe, (Zoila Moralez Scribe) and accurately reflects the services I performed and decisions made by me, Luis Arita MD, as attested by the provider's signature.
[2018-11-26 01:53] LABS: BASO# 0.07 X1000 (0.0-0.2); BASO% 0.3 % (0.0-0.8); EOS# 0.68 X1000 (0.0-0.7); EOS% 2.7 % (0.0-10.0); HEMATOCRIT 43.3 % (37.0-47.0); HEMOGLOBIN 14.3 g/dL (12.0-16.0); IMM GRAN# 0.17 X1000 (0.0-0.04); IMM GRAN% 0.7 % (0.0-0.5); LYMPH# 1.91 X1000 (1.2-3.4); LYMPH% 7.7 % (20.5-51.1); MCV 93.9 FL (81-99); MONO# 1.08 X1000 (0.11-0.59); MONO% 4.4 % (1.7-9.3); MPV 9.6 FL (7.4-10.4); NEUT# 20.86 X1000 (1.4-6.5); NEUT% 84.2 % (42.2-75.2); PLT 299 X1000 (130-400); RBC 4.61 XMIL (4.2-5.4); RDW 14.3 % (11.5-14.5); WBC 24.77 X1000 (4.8-10.8)
[2018-11-26 02:13] LABS: INR 0.85; PROTIME 12.1 Seconds (11.0-16.0)
[2018-11-26 02:14] LABS: PTT 23.7 Seconds (22.3-41.8)
[2018-11-26 02:28] LABS: AGAP 11; BUN 13 mg/dL (8-22); CHLORIDE 100 mmol/L (98-107); COSMO 287; GLUCOSE 140 mg/dL (70-104); POTASSIUM 3.9 mmol/L (3.5-5.1); SODIUM 143 mmol/L (136-145); TCO2 32 mmol/L (25-35)
[2018-11-26 02:29] LABS: ALBUMIN 4.3 g/dL (3.5-5.0); ALKALINE PHOSPHATASE 52 U/L (32-104); CALCIUM 9.5 mg/dL (8.8-10.2); CREATININE 0.7 mg/dL (0.5-0.9); ESTIMATED GFR > 60; GOT 27 U/L (10-30); GPT 21 U/L (10-36); TOTAL PROTEIN 6.6 g/dL (6.3-8.3)
[2018-11-26] MEDS: LEVAQUIN 500 MG/D5W 500 MG/100 ML IVPB IV SCH (02:40)
[2018-11-26 02:55] LABS: BILIRUBIN URINE NEGATIVE (NEGATIVE); BLOOD URINE 1+ (NEGATIVE); GLUCOSE URINE NEGATIVE (NEGATIVE); KETONE URINE NEGATIVE (NEGATIVE); LEUKOCYTES URINE NEGATIVE (NEGATIVE); NITRITE URINE NEGATIVE (NEGATIVE); PROTEIN URINE NEGATIVE (NEGATIVE); UROBILINOGEN URINE NORMAL
[2018-11-26 02:56] LABS: CLARITY CLEAR (CLEAR); COLOR YELLOW
[2018-11-26 03:01] LABS: URINE WBC NS /HPF (<10)
[2018-11-26 03:02] LABS: URINE BACTERIA 1+ /HFP; URINE CAST NONE SEEN /LPF; URINE CRYSTAL NONE SEEN /HPF; URINE EPITHELIAL CELLS <10 /HPF (<10); URINE RBC <10 /HPF (<10); URINE SOURCE CATH; URINE YEAST NONE SEEN /HPF
[2018-11-26] MEDS: DUONEB (A & A) INH SCH ×6 (03:05→23:14)
--- NOTE | 2018-11-26 03:44 | EKG Report ---
Test Performed on : 11/26/2018 02:58:58 AM Test Reason : sob Blood Pressure : / mmHG Vent. Rate : 101 BPM Atrial Rate : 101 BPM P-R Int : 160 ms QRS Dur : 084 ms QT Int : 360 ms P-R-T Axes : 075 075 039 degrees QTc Int : [address] & T wave abnormality, consider anterolateral ischemia Abnormal ECG When compared with ECG of 18-OCT-2018 12:27, premature ventricular complexes. are no longer present Vent. rate has increased BY 34 BPM QT has lengthened Unconfirmed Result
[2018-11-26] MEDS ORDERED: TYLENOL PO PRN (08:36)
[2018-11-26] MEDS ORDERED: ZOFRAN IV PRN (08:36)
--- NOTE | 2018-11-26 08:40 | Diag Imaging Result Doc PS360 ---
EXAM: CHEST-1 VIEW HISTORY: sob TECHNIQUE: Single AP view COMPARISON: 10/18/2018 FINDINGS: The cardiomediastinal silhouette is within normal limits. Pulmonary emphysema and unchanged interstitial fibrosis. The pulmonary vasculature is not congested. No infiltrate, effusion, or pneumothorax is appreciated. IMPRESSION: Emphysema and mild fibrosis. No acute cardiopulmonary abnormality is identified. Electronically signed by Starla Villagomez 11/26/2018 8:37 AM
[2018-11-26] MEDS: ROCEPHIN 1 GM in NS 50 ML IV SCH (10:31)
[2018-11-26] MEDS: SOLU-MEDROL IV SCH ×2 (10:31→16:19)
[2018-11-26] MEDS ORDERED: VENTOLIN HFA INH PRN (12:00)
[2018-11-26] MEDS ORDERED: ZOLOFT PO SCH (12:15)
[2018-11-26] MEDS: SYNTHROID PO SCH (12:37)
[2018-11-26] MEDS: DULERA 200 MCG/5 MCG INHALER INH SCH (15:19)
--- NOTE | 2018-11-26 16:26 | HISTORY AND PHYSICAL ---
CHIEF COMPLAINT: Shortness of breath. HISTORY OF PRESENT ILLNESS: This is a 63-year-old female who presented to the emergency room complaining of shortness of breath. This started as a sudden onset about an hour prior to arrival. She states that she was awakened with this. She does have a history of COPD. She denies any sick contacts recently. She denied any chest pain, any palpitations, any syncope. PAST MEDICAL HISTORY: 1. COPD. 2. Hypertension. 3. Hypothyroid. 4. Hyperlipidemia. PAST SURGICAL HISTORY: Cataract removal, hysterectomy, and back surgery. SOCIAL HISTORY: She denies alcohol, tobacco, or illicit drug use. ALLERGIES: Penicillin which causes hives. HOME MEDICATIONS: A list will be obtained by the nursing staff and once verified will be restarted as is appropriate. REVIEW OF SYSTEMS: Discussed with patient with pertinent positives stated in the HPI. She denies any syncope, dizziness, chest pain, palpitations, productive cough, any nausea, vomiting, diarrhea, constipation, black or bloody vomitus or stools, hematuria, dysuria, frequency, urgency. PHYSICAL EXAMINATION: GENERAL: This is a 63-year-old female who is sitting up in the bed, in no distress. VITAL SIGNS: Blood pressure is 121/69, with a heart rate of 99, respirations are 20, temperature is 97.8, with O2 saturations 96 to 98% on 4 L nasal cannula. HEENT: Head is normocephalic, atraumatic. Mucous membranes are moist. NECK: Supple with trachea midline. CARDIOVASCULAR: Regular rate and rhythm. S1 and S2 appreciated. She has no murmur. Calves are nontender. Peripheral pulses are palpable x4. PULMONARY: Breath sounds with wheezes scattered throughout. Chest rises and falls symmetrically with respiration. GASTROINTESTINAL: Abdomen is soft, nontender, nondistended, with bowel sounds in all 4 quadrants. GENITOURINARY: She has no CVA nor suprapubic tenderness. NEUROLOGIC: She is alert and oriented x3. SKIN: Warm and dry. LABS: WBC is 24.7, with hemoglobin 14.3, hematocrit 43.3, and platelets of 299,000. Sodium 143, potassium 3.9, BUN 13, creatinine 0.7, with a glucose of 140. Troponins are negative on multiple occasions. Urinalysis is essentially negative. Blood cultures and urine culture are pending. Chest x-ray reveals emphysema and mild fibrosis. ASSESSMENT: 1. Acute hypercapnic respiratory failure. 2. Pneumonia. 3. Hypothyroid. 4. Hypertension. 5. Chronic obstructive pulmonary disease with acute exacerbation. 6. Deep vein thrombosis and gastrointestinal prophylaxis. PLAN: The patient is admitted to the medical-surgical floor, placed on telemetry. Will give supplemental oxygen as needed, DuoNeb nebs scheduled and p.r.n. with steroids to taper. We will start incentive spirometer per respiratory therapy. Have the patient up in the chair with meals and p.r.n. Will identify her home medications and continue as appropriate. We will continue Rocephin and Levaquin for antibiotic coverage and any further antibiotics will be culture driven. For DVT prophylaxis will use SCDs and for GI prophylaxis Prilosec. Further treatments pending hospital course. Plan has been discussed with Dr. Stuart. Dictated by TIFFANI Barber for Andrez Stuart MD cc: TIFFANI Barber MD
--- NOTE | 2018-11-26 20:28 | HISTORY AND PHYSICAL ---
ADDENDUM: Patient seen and examined by myself. Full note dictated and discussed with nurse practitioner. Patient presented to the hospital complaining of shortness of breath. She has a history of COPD. Her white count is elevated at 24, blood sugar elevated at 140. We are going to admit her to the hospital, treat her for pneumonia, place her on antibiotics and breathing treatments, and will follow. cc: Andrez Stuart MD
[2018-11-26] MEDS: LIPITOR PO SCH (22:13)
[2018-11-27] MEDS: LEVAQUIN 500 MG/D5W 500 MG/100 ML IVPB IV SCH (02:00)
[2018-11-27] MEDS: SOLU-MEDROL IV SCH ×3 (02:01→15:56)
[2018-11-27] MEDS: DUONEB (A & A) INH SCH ×6 (03:03→22:57)
[2018-11-27] MEDS: SYNTHROID PO SCH ×2 (05:53→06:19)
[2018-11-27] MEDS: PRILOSEC PO SCH ×2 (05:53→06:09)
[2018-11-27] MEDS: ZOLOFT PO SCH (08:20)
[2018-11-27] MEDS: ZIAC 5/6.25 MG PO SCH (08:21)
[2018-11-27] MEDS: ROCEPHIN 1 GM in NS 50 ML IV SCH (08:23)
[2018-11-27] MEDS: DULERA 200 MCG/5 MCG INHALER INH SCH (08:35)
[2018-11-27 08:50] LABS: HEMATOCRIT 41.7 % (37.0-47.0); HEMOGLOBIN 13.7 g/dL (12.0-16.0); MCH 30.9 PG (27-31); MCHC 32.9 g/dL (33-37); MCV 93.9 FL (81-99); MPV 9.6 FL (7.4-10.4); RBC 4.44 XMIL (4.2-5.4); RDW 14.2 % (11.5-14.5); WBC 22.25 X1000 (4.8-10.8)
[2018-11-27] MEDS ORDERED: ZEBETA PO SCH (09:00)
[2018-11-27] MEDS ORDERED: ZIAC 5/6.25 MG PO SCH (09:00)
[2018-11-27 09:05] LABS: AGAP 15; ALBUMIN 4.2 g/dL (3.5-5.0); ALKALINE PHOSPHATASE 45 U/L (32-104); BUN 15 mg/dL (8-22); CALCIUM 9.1 mg/dL (8.8-10.2); CHLORIDE 98 mmol/L (98-107); COSMO 285; CREATININE 0.8 mg/dL (0.5-0.9); ESTIMATED GFR > 60; GLUCOSE 286 mg/dL (70-104); GOT 16 U/L (10-30); GPT 17 U/L (10-36); POTASSIUM 3.8 mmol/L (3.5-5.1); SODIUM 137 mmol/L (136-145); TCO2 24 mmol/L (25-35); TOTAL PROTEIN 6.7 g/dL (6.3-8.3)
--- NOTE | 2018-11-27 21:22 | PROGRESS NOTE ---
DATE: 11/27/2018 SUBJECTIVE: Patient notes she still has some shortness of breath, but overall thinks her breathing is a little bit better. Denies any fevers or chills. Denies coughing. PHYSICAL EXAM: Vital Signs: Temperature 97.9, pulse 100, respiratory rate 18, BP 146/63. General: Patient is awake, alert. She is in moderate respiratory distress but somewhat improved from admission. HEENT: Normocephalic. Neck: Supple. Cardiovascular: Regular rate. No murmurs. Chest: Clear. Positive wheezing. Moderately labored. No crackles. Abdomen: Soft, nondistended. Extremities: Moves all extremities. ASSESSMENT: 1. Leukocytosis. 2. Chronic obstructive pulmonary disease with acute exacerbation. 3. Acute hypercapnic respiratory failure. 4. Pneumonia. 5. Hypothyroidism. 6. Hypertension. PLAN: We will continue patient in the hospital. Continue Levaquin, Rocephin, Solu-Medrol at 60 IV every 8 hours. Continue oxygen, breathing treatments, and will follow. cc: Andrez Stuart MD
[2018-11-27] MEDS ORDERED: APRESOLINE PO ONE (21:52)
[2018-11-27] MEDS: LIPITOR PO SCH (22:15)
[2018-11-28] MEDS: SOLU-MEDROL IV SCH ×3 (00:18→17:45)
[2018-11-28] MEDS: LEVAQUIN 500 MG/D5W 500 MG/100 ML IVPB IV SCH (02:50)
[2018-11-28] MEDS: DUONEB (A & A) INH SCH ×6 (03:14→23:02)
[2018-11-28 06:16] LABS: HEMATOCRIT 39.5 % (37.0-47.0); HEMOGLOBIN 12.9 g/dL (12.0-16.0); MCH 30.6 PG (27-31); MCHC 32.7 g/dL (33-37); MCV 93.8 FL (81-99); MPV 10.3 FL (7.4-10.4); RBC 4.21 XMIL (4.2-5.4); RDW 14.2 % (11.5-14.5); WBC 16.75 X1000 (4.8-10.8)
[2018-11-28 06:34] LABS: AGAP 11; ALBUMIN 3.9 g/dL (3.5-5.0); ALKALINE PHOSPHATASE 41 U/L (32-104); BUN 15 mg/dL (8-22); CALCIUM 8.9 mg/dL (8.8-10.2); CHLORIDE 102 mmol/L (98-107); COSMO 287; CREATININE 0.7 mg/dL (0.5-0.9); ESTIMATED GFR > 60; GLUCOSE 185 mg/dL (70-104); GOT 17 U/L (10-30); GPT 17 U/L (10-36); POTASSIUM 3.6 mmol/L (3.5-5.1); SODIUM 141 mmol/L (136-145); TCO2 28 mmol/L (25-35); TOTAL PROTEIN 6.3 g/dL (6.3-8.3)
[2018-11-28] MEDS: SYNTHROID PO SCH (06:40)
[2018-11-28] MEDS: ZOLOFT PO SCH (06:40)
[2018-11-28] MEDS: ZIAC 5/6.25 MG PO SCH (06:40)
[2018-11-28] MEDS: PRILOSEC PO SCH (06:40)
[2018-11-28] MEDS: DULERA 200 MCG/5 MCG INHALER INH SCH (07:31)
[2018-11-28] MEDS: ROCEPHIN 1 GM in NS 50 ML IV SCH (09:17)
[2018-11-28] MEDS ORDERED: LEVAQUIN 500 MG/D5W 500 MG/100 ML IVPB IV SCH (09:31)
--- NOTE | 2018-11-28 19:24 | PROGRESS NOTE ---
DATE: 11/28/2018 SUBJECTIVE: The patient notes that she is feeling a little bit better. She is having less cough and less congestion. Denies any fevers or chills. PHYSICAL EXAMINATION: vital signs: Temperature 97.8 degrees, pulse 98, respiratory 20, BP 140/71. General: The patient is very pleasant. She is in mild respiratory distress. HEENT: Normocephalic. Neck: Supple. Cardiovascular: Regular rate. Chest: Decreased, but equal breath sounds. She does have some wheezing. Abdomen: Soft, nondistended. Extremities: Moves all extremities. ASSESSMENT: 1. Acute hypercapnic respiratory failure. 2. Pneumonia. 3. Hypothyroidism. 4. Hypertension. 5. Chronic obstructive pulmonary disease with exacerbation. 6. Leukocytosis, improving. PLAN: We will decrease Solu-Medrol to 40 IV q. 8. Continue Levaquin and Rocephin. Continue to follow. cc: Andrez Stuart MD
[2018-11-28] MEDS: LIPITOR PO SCH (21:57)
[2018-11-29] MEDS: SOLU-MEDROL IV SCH ×3 (00:17→20:47)
[2018-11-29] MEDS: DUONEB (A & A) INH SCH ×6 (03:30→22:47)
[2018-11-29] MEDS: LEVAQUIN PO SCH (05:58)
[2018-11-29] MEDS: ZIAC 5/6.25 MG PO SCH (05:59)
[2018-11-29] MEDS: ZOLOFT PO SCH (05:59)
[2018-11-29] MEDS: PRILOSEC PO SCH (05:59)
[2018-11-29] MEDS: SYNTHROID PO SCH (05:59)
[2018-11-29] MEDS: DULERA 200 MCG/5 MCG INHALER INH SCH (07:39)
[2018-11-29] MEDS: ROCEPHIN 1 GM in NS 50 ML IV SCH (09:23)
--- NOTE | 2018-11-29 15:14 | PROGRESS NOTE ---
DATE: 11/29/2018 SUBJECTIVE: Patient notes she is starting to improve. She is still having some cough and congestion, but that is improving. Denies any fevers or chills. PHYSICAL EXAMINATION: Vitals: Temperature 97 degrees, pulse 90, respiratory rate 18, BP 143/70. General: Patient is awake, alert. She is in no current respiratory distress. HEENT: Normocephalic. Neck: Supple. CV: Regular rate. Chest: Positive wheezing but improved, better air movement. Abdomen: Soft, nondistended. Extremities: Moves all extremities. Neuro: No changes. ASSESSMENT: 1. Acute hypercapnic respiratory failure. 2. Chronic obstructive pulmonary disease with exacerbation. 3. Pneumonia. 4. Hypothyroidism. 5. Hypertension. 6. Obesity. 7. Leukocytosis, improved. PLAN: Continue antibiotics since her white count has dropped from 24 to 16. We will continue steroids although will decrease to 40 q.12 and see how she does. Hopefully home over the next 1 or 2 days. cc: Andrez Stuart MD
[2018-11-29] MEDS: LIPITOR PO SCH (20:47)
[2018-11-30] MEDS: DUONEB (A & A) INH SCH ×3 (02:43→11:26)
[2018-11-30] MEDS: PRILOSEC PO SCH (06:15)
[2018-11-30] MEDS: LEVAQUIN PO SCH (06:16)
[2018-11-30] MEDS: SYNTHROID PO SCH (06:16)
[2018-11-30] MEDS: ZIAC 5/6.25 MG PO SCH (06:16)
[2018-11-30] MEDS: ZOLOFT PO SCH (06:16)
[2018-11-30 07:27] LABS: HEMATOCRIT 40.2 % (37.0-47.0); HEMOGLOBIN 13.3 g/dL (12.0-16.0); MCH 30.9 PG (27-31); MCHC 33.1 g/dL (33-37); MCV 93.5 FL (81-99); MPV 9.2 FL (7.4-10.4); RBC 4.3 XMIL (4.2-5.4); RDW 14.1 % (11.5-14.5); WBC 18.11 X1000 (4.8-10.8)
[2018-11-30] MEDS: DULERA 200 MCG/5 MCG INHALER INH SCH (07:44)
[2018-11-30 07:55] LABS: AGAP 8; ALKALINE PHOSPHATASE 49 U/L (32-104); BUN 18 mg/dL (8-22); CALCIUM 9.3 mg/dL (8.8-10.2); CHLORIDE 95 mmol/L (98-107); COSMO 279; CREATININE 0.6 mg/dL (0.5-0.9); ESTIMATED GFR > 60; GLUCOSE 164 mg/dL (70-104); GOT 13 U/L (10-30); GPT 17 U/L (10-36); MAGNESIUM 2.1 mg/dL (1.5-2.7); POTASSIUM 4.1 mmol/L (3.5-5.1); SODIUM 137 mmol/L (136-145); TCO2 34 mmol/L (25-35); TOTAL PROTEIN 6.2 g/dL (6.3-8.3)
[2018-11-30 08:07] VITALS: BP 165/77
[2018-11-30] MEDS: SOLU-MEDROL IV SCH (10:45)
--- NOTE | 2018-12-01 13:49 | DISCHARGE SUMMARY ---
ADMISSION DATE: 11/26/2018 DISCHARGE DATE: 11/30/2018 ADMISSION DIAGNOSES: 1. Acute hypercapnic respiratory failure. 2. Pneumonia. 3. Hypothyroidism. 4. Hypertension. 5. Chronic obstructive pulmonary disease exacerbation. DISCHARGE DIAGNOSES: 1. Acute hypercapnic respiratory failure. 2. Chronic obstructive pulmonary disease exacerbation. 3. Pneumonia. 4. Hypothyroidism. 5. Hypertension. 6. Obesity. 7. Improved leukocytosis. CONSULTATIONS: None. SURGERIES AND PROCEDURES: None. HOSPITAL COURSE: On 11/26/2018, Ms Jeanne Mckeon, a 63-year-old female, presented to [facility] with complaints of shortness of breath. Apparently had sudden onset start 1 hour prior to arrival. It woke her from sleep. Labs and imaging revealed acute hypercapnic respiratory failure, COPD exacerbation, and pneumonia. She was initiated on antibiotics, Rocephin, Levaquin, steroids while she was here. Every day, she began to feel much better. She was deemed appropriate for discharge home today. DISCHARGE VITAL SIGNS: Temperature 98.1 degrees heart rate 81, respiratory rate 18, blood pressure 165/77, O2 saturation 98% on 3 L nasal cannula DISCHARGE LABORATORY DATA: White blood cells 18,000, hemoglobin 13, hematocrit 40, platelet count 233,000. Sodium 137, potassium 4.1, BUN 18, creatinine 0.6, glucose 164, calcium 9.3. Magnesium 2.1. Bilirubin 0.40, AST 13, ALT 17, albumin 4.0. Urinalysis: 1+ blood, bacteria 1+, otherwise negative. PERTINENT IMAGING: Chest x-ray on admission: Emphysema. Mild fibrosis. No acute pulmonary abnormality identified. DIAGNOSTIC STUDIES: EKG: Sinus tachycardia rate 101. QTc is 466. PHYSICIAN FOLLOW-UP: Dr. Mik Lam on 12/02/2018 at 1:40 p.m. DISCHARGE INSTRUCTIONS: Diagnoses COPD and pneumonia: Drink plenty of water. Keep doing your cough, deep breathing exercises throughout the day. Be sure to take medication as prescribed, especially your antibiotic. If you condition changes, contact physician and/or return to the emergency department. Changes may include, but are not limited to, shortness of breath, increased fatigue, excessive bleeding, unexplained weight loss or gain, unimaginable pain, signs or symptoms of infection. ACTIVITY: As tolerated. DISCHARGE DIET: Heart healthy. MEDICATIONS: 1. Atorvastatin calcium 40 mg p.o. nightly. 2. Bisoprolol hydrochlorothiazide once p.o. daily. 3. Dulera 2 puffs inhaled. 4. Albuterol/Atrovent nebulizers 4 times a day. 5. Ceftaroline 50 mg p.o. daily. 6. Synthroid 75 mcg p.o. daily. 7. Albuterol 2 puffs inhaled every 4 hours. 8. Levaquin 500 mg p.o. daily. 9. Medrol Dosepak. DISCHARGE DISPOSITION: Home. Dictated by TIFFANI Posey for Andrez Stuart MD cc: TIFFANI Posey MD Edwin K. Matthews, MD
--- NOTE | 2018-12-03 01:47 | DISCHARGE SUMMARY ---
ADMISSION DATE: 11/26/2018 DISCHARGE DATE: 11/30/2018 ADDENDUM: Patient seen and examined by myself. Full note dictated and discussed with nurse practitioner. Patient presented to the hospital with increased work of breathing, shortness of breath. Was admitted for acute hypercapnic respiratory failure and pneumonia. She was placed on antibiotics. Thankfully, she continued to improve. On discharge she notes that she is feeling better and is asking to go home. She is able to ambulate without any difficulty. cc: Andrez Stuart MD
== END 2018-11-30 12:23 | disposition home or self-care (01) | DRG 193 ==
LOC: P.ED 00:41 → P.EDIPHOLD 04:05 → P.MEDSURG 07:39
PROVIDERS: ATTEND Family Medicine
CPT/HCPCS: 71010; 71045; 80053; 81001; 82550; 82805; 82948; 83605; 83735; 83880; 84484; 85025; 85027; 85610; 85730; 87040; 87088; 93005; 94640; 94761; 94799; 96365; 96366; 96375; 99285; 99291; A9270; J0696; J1956; J2060; J2920; J2930; J7040; XXXXX

== ENCOUNTER 2019-01-31 05:47 | Inpatient (IN) ==
[2019-01-31] MEDS ORDERED: DUONEB (A & A) INH ONE (05:53)
[2019-01-31] MEDS ORDERED: MAGNESIUM SULFATE IV ONE (05:54)
[2019-01-31] MEDS ORDERED: SOLU-MEDROL IV ONE (05:54)
--- NOTE | 2019-01-31 06:01 | PROVIDER DOCUMENTATION ---
HPI-Respiratory General - General Chief Complaint: Shortness of Breath Stated Complaint: SOB Time Seen by Provider: 01/31/19 05:52 Source: patient, EMS Allergies/Adverse Reactions: Patient Allergies Allergy/AdvReac Type Severity Reaction Status Date / Time Penicillins Allergy Mild HIVES Verified 12/28/18 23:30 Home Medications: Home Medication List Medication Instructions Recorded Confirmed Last Taken Type Albuterol Sulfate [Ventolin Hfa] 60 puff INHALATION PRN PRN 01/16/19 01/16/19 Unknown History Atorvastatin Calcium [Lipitor] 1 tab PO DAILY 01/16/19 01/16/19 Unknown History Bisoprolol Fumarate/Hctz 1 tab PO DAILY 01/16/19 01/16/19 Unknown History [Bisoprolol-Hctz 5-6.25 mg Tab] Fluticasone/Umeclidin/Vilanter 1 ea INHALATION DAILY #1 blst.w.dev 01/16/19 Unknown Rx [Trelegy Ellipta 100-62.5-25] Ipratropium/Albuterol Sulfate 1 dose INHALATION 4XDAY 01/16/19 01/16/19 Unknown History [Iprat-Albut 0.5-3(2.5) mg/3 ml] Levofloxacin [Levaquin] 500 mg PO DAILY #10 tab 01/16/19 Unknown Rx Levothyroxine [Synthroid] 1 tab PO DAILY 01/16/19 01/16/19 Unknown History Mometasone/Formoterol [Dulera 200 2 puff INH BID 01/16/19 01/16/19 Unknown History Mcg/5 Mcg Inhaler] Prednisone 20 mg PO BID #30 tab 01/16/19 Unknown Rx - History of Present Illness-Resp Nature of Presenting Problem: Patient is a 63 year old white female with severe COPD requiring continuous home oxygen, followed by Dr. Peter, who presents by EMS with worsening shortness of breath and wheezing. Denies fever or chest pain. Review of Systems - Adult - REVIEW OF SYSTEMS - ADULT Constitutional: denies: chills, fever Eyes: reports: no symptoms reported Ears, Nose, Mouth & Throat: reports: no symptoms reported Cardiovascular: denies: chest pain Respiratory: reports: see HPI, cough, shortness of breath, wheezing Gastrointestinal: reports: no symptoms reported Genitourinary: reports: no symptoms reported Musculoskeletal: reports: no symptoms reported Integumentary: reports: no symptoms reported Neurological: reports: no symptoms reported Psychiatric: reports: anxiety Endocrine: reports: no symptoms reported Hematologic/Lymphatic: reports: no symptoms reported Allergic/Immunologic: reports: no symptoms reported All Other Systems: Reviewed and Negative Past History - Adult - PAST MEDICAL HISTORY-ADULT Review of Records: reports: Old Records Reviewed, Nursing Assessment Review, Medications Reviewed, Social history reviewed & non-contributory. Major Childhood Illnesses: reports: denies history Cardiovascular: reports: HTN, hyperlipidemia. denies: cardiac disease, CAD Respiratory: reports: COPD, pneumonia Gastrointestinal: reports: denies history Genitourinary: reports: denies history Musculoskeletal: reports: denies history Neurological: reports: denies history Psychiatric: reports: denies history Endocrine/Immune: reports: denies history, thyroid disorder. denies: Diabetes Other Conditions: reports: cataract/glaucoma - PRIOR SURGERIES/PROCEDURES Surgical/Procedure History: reports: pacemaker, back/neck, other (cataract removal) - IMMUNIZATION STATUS Childhood Immunizations: See Nurse Assessment Flu Vaccine: See Nurse Assessment - FAMILY HISTORY Family History: reviewed, not pertinent Physical Exam-General - CONSTITUTIONAL General Appearance: alert, moderate distress, other (anxious) - EYES Eyes: other (clear) - HEAD, EARS, NOSE, MOUTH & THROAT HENMT: moist mucous membranes - NECK Neck: supple - RESPIRATORY Respiratory: decreased breath sounds, wheezing (diffuse) - CARDIOVASCULAR Cardiovascular: regular rate, rhythm - GASTROINTESTINAL (ABDOMEN) Abdominal Exam: non tender, soft - LYMPHATIC Lymphatic: no adenopathy - MUSCULOSKELETAL Back Exam: no CVA tenderness Extremity: non-tender - SKIN Integumentary: normal turgor, pallor - NEUROLOGIC Neurologic: grossly normal - PSYCHIATRIC Psych/Mental Status: oriented x 3, anxious - HEART Score HEART Score: History: Slightly Suspicious HEART Score: ECG: Normal HEART Score: Age: 45-65 Years HEART Score: Risk Factors for Atherosclerotic Disease: > or = 3 Risk Factors or History of Atherosclerotic Disease HEART Score: Troponin: < or = Normal Limit Total HEART Score:: 3 Progress - PLAN OF CARE/RESULTS Progress/Plan/Lab Results: Vital Signs - 8 hr 01/31/19 05:46 01/31/19 05:59 Temperature 98.0 F Pulse Rate 93 H 98 H Respiratory Rate 40 H 27 H Blood Pressure 144/84 O2 Sat by Pulse Oximetry 95 93 L Laboratory Results - last 24 hr 01/31/19 01/31/19 01/31/19 05:54 05:54 05:54 WBC 12.96 H RBC 4.20 Hgb 12.9 Hct 39.9 MCV 95.0 MCH 30.7 MCHC 32.3 L RDW Std Deviation 13.6 Plt Count 236 MPV 9.3 Immature Gran % (Auto) 0.5 Neut % (Auto) 73.7 Lymph % (Auto) 16.0 L [place] % (Auto) 6.2 Eos % (Auto) 3.3 Baso % (Auto) 0.3 Immature Gran # (Auto) 0.07 H Neut # (Auto) 9.55 H Lymph # (Auto) 2.07 [place] # (Auto) 0.80 H Eos # (Auto) 0.43 Baso # (Auto) 0.04 Specimen Type Sample Site pH pCO2 pO2 HCO3 Base Excess Oxyhemoglobin ABG O2 Sat (Calculated) ABG O2 Saturation ABG Carboxyhemoglobin ABG Methemoglobin Vikas Test A-a O2 Difference Total Hemoglobin Lactate Liter Flow Blood Gas Modality FiO2 % Sodium Potassium Chloride Carbon Dioxide Anion Gap BUN Creatinine Estimated GFR/1.73 m2 BUN/Creatinine Ratio Glucose Calculated Osmolality Calcium Total Bilirubin AST ALT Alkaline Phosphatase Creatine Kinase Troponin T < 0.010 [id number] Pept 478 H Total Protein Albumin Globulin Albumin/Globulin Ratio 01/31/19 01/31/19 05:54 06:07 WBC RBC Hgb Hct MCV MCH MCHC RDW Std Deviation Plt Count MPV Immature Gran % (Auto) Neut % (Auto) Lymph % (Auto) [place] % (Auto) Eos % (Auto) Baso % (Auto) Immature Gran # (Auto) Neut # (Auto) Lymph # (Auto) [place] # (Auto) Eos # (Auto) Baso # (Auto) Specimen Type ARTERIAL Sample Site R RADIAL pH 7.44 pCO2 42 pO2 80 HCO3 27.9 H Base Excess 3.9 H Oxyhemoglobin 94.5 L ABG O2 Sat (Calculated) 16.9 ABG O2 Saturation 97.6 ABG Carboxyhemoglobin 2.40 ABG Methemoglobin 0.8 Vikas Test YES A-a O2 Difference 67.0 Total Hemoglobin 12.7 Lactate 1.90 Liter Flow 2.0 Blood Gas Modality CANNULA FiO2 % 28.0 Sodium 140 Potassium 4.1 Chloride 101 Carbon Dioxide 26 Anion Gap 13 BUN 9 Creatinine 0.7 Estimated GFR/1.73 m2 > 60 BUN/Creatinine Ratio 13 Glucose 168 H Calculated Osmolality 282 Calcium 9.3 Total Bilirubin 0.50 AST 21 ALT 14 Alkaline Phosphatase 50 Creatine Kinase 72 Troponin T Jjr-S-Wxopqaboppo Pept Total Protein 6.2 L Albumin 4.0 Globulin 2.0 Albumin/Globulin Ratio 2.0 Orders Category Date Time Status Admit - [facility] Routine AdmDCTranf 01/31/19 06:38 Active Activity - Bed Rest with BRP ORDERED Care 01/31/19 06:40 Active Cardiac Monitoring DIRECTED Care 01/31/19 05:55 Active Resuscitation Status Routine Care 01/31/19 06:40 Ordered Vital Signs Order Q 4-HR ASSESS Care 01/31/19 06:40 Active Z-Document. for Tele Applied ORDERED Care 01/31/19 06:41 Active Heart Healthy Diet Diet 01/31/19 06:41 Active CHEST-PORTABLE [RAD] Stat Exams 01/31/19 05:54 Completed ABG [RESP] Routine Lab 01/31/19 06:07 Completed BLOOD CULTURE [BLDCUL] Stat Lab 01/31/19 06:04 Ordered BNP [PRO B-NATRIURETIC PEPTIDE] Stat Lab 01/31/19 05:54 Completed CBC WITH ELECTRONIC DIFF [HEME] Stat Lab 01/31/19 05:54 Completed CK PROFILE [SP CHEM] Stat Lab 01/31/19 05:54 Completed CMP [COMPREHENSIVE METABOLIC PANEL] [CHEM] Stat Lab 01/31/19 05:54 Completed TROPONIN T Stat Lab 01/31/19 05:54 Completed Albuterol 2.5MG/Ipratrop 0.5MG [Duoneb (A & A)] Med 01/31/19 05:53 Discontinued 3 ml INH NOW ONE Albuterol 2.5MG/Ipratrop 0.5MG [Duoneb (A & A)] Med 01/31/19 07:30 Active 3 ml INH RTQ4H Levofloxacin 750 mg/D5w [Levaquin 750 mg/D5w] Med 01/31/19 06:33 Active 750 mg in 150 ml IV NOW Levofloxacin 750 mg/D5w [Levaquin 750 mg/D5w] Med 02/01/19 06:00 Active 750 mg in 150 ml IV Q24H Magnesium Sulfate Med 01/31/19 05:54 Discontinued 1 gm IV NOW ONE Methylprednisolone Sod Succ [Solu-Medrol] Med 01/31/19 05:54 Discontinued 125 mg IV NOW ONE Methylprednisolone Sod Succ [Solu-Medrol] Med 01/31/19 12:00 Active 125 mg IV Q6H Aerosol Treatments Routine Oth 01/31/19 05:53 Completed Aerosol Treatments Routine Ot 01/31/19 06:41 Active Aerosol Treatments Stat Oth 01/31/19 05:53 Completed Aerosol Treatments Stat Oth 01/31/19 06:41 Active Oxygen Device Routine Oth 01/31/19 06:41 Active Pulse Oximetry Stat Oth 01/31/19 06:02 Active Telemetry [OM.EQ] Routine Oth 01/31/19 06:40 Active EKG [EKG] Stat Ther 01/31/19 05:56 Ordered Transfer/Admit Order [TRANSFER] Routine Transfer 01/31/19 06:43 Ordered Result Diagrams: 01/31/19 05:54 01/31/19 05:54 - REASSESSMENT Reassessment #1 Time Reassessed: 06:35 Status: improving Reassessment Comment: wheezing improved, patient appears calm at this time - EKG 1 Time of EKG reading by physician:: 06:54 EKG Read and Signed by:: Bruce Kent Rate: 86 Rhythm: NSR [place]: normal ST Wave: non-specific ST changes Comments: no STEMI - XRAY 1 XRAY Study: Chest XRAY Interpretation: RLL infiltrate - CONSULTS/PCP/HOSPITALIST Notification #1 *Consult/PCP/Hospitalist*: Dr. Vaughn, hospitalist Time Discussed: 06:40 Consult Disposition: Admit - CHANGE OF SHIFT REPORT (ED Provider) 1 Time of Transfer: 07:00 Departure - Departure Date of Disposition Decision: 01/31/19 Time of Disposition Decision: 06:57 DIAGNOSIS: COPD with exacerbation Pneumonia Qualifiers: Pneumonia type: due to unspecified organism Laterality: right Lung location: lower lobe of lung Qualified Code(s): J18.1 - Lobar pneumonia, unspecified organism Disposition: ADMITTED INPATIENT 09 Certified Medical Emergency: Emergent Condition: Stable Referrals and Follow-Ups: None,PCP [Primary Care Provider] - - Critical Care Note This patient required my direct & personal management of CC.: Yes Total Time (mins): 45 Critical Care Statement: This patient required my direct personal management to treat or rule out processes, the absence of which, could potentiallly result in sudden, clinically significant life or limb threatening deterioration. Attestation - Physician/ OZIEL Attestation Patient care was provided by Advanced Practice Provider:: No The physician spent face to face time with patient:: Yes Advanced Practice Provider documentation review:: Supervising physician onsite and consulted in the evaluation and care of this patient. The physician did have a face to face encounter with the patient.
[2019-01-31 06:07] LABS: BASO# 0.04 X1000 (0.0-0.2); BASO% 0.3 % (0.0-0.8); EOS# 0.43 X1000 (0.0-0.7); EOS% 3.3 % (0.0-10.0); HEMATOCRIT 39.9 % (37.0-47.0); HEMOGLOBIN 12.9 g/dL (12.0-16.0); IMM GRAN# 0.07 X1000 (0.0-0.04); IMM GRAN% 0.5 % (0.0-0.5); LYMPH# 2.07 X1000 (1.2-3.4); MCH 30.7 PG (27-31); MCHC 32.3 g/dL (33-37); MONO% 6.2 % (1.7-9.3); MPV 9.3 FL (7.4-10.4); NEUT# 9.55 X1000 (1.4-6.5); NEUT% 73.7 % (42.2-75.2); PLT 236 X1000 (130-400); RDW 13.6 % (11.5-14.5); WBC 12.96 X1000 (4.8-10.8)
[2019-01-31 06:28] LABS: BE 3.9 mmoll (-3.0-3.0); BLOOD TYPE ARTERIAL; HCO3-(ACT) 27.9 mmoll (20.0-26.0); METHB 0.8 % (0.0-1.5); O2(CT) 16.9 mL/dL (15.0-23.0); O2HB 94.5 % (95.0-99.0); PCO2(98.6) 42 mmHg (35-45); PO2(98.6) 80 mmHg (60-100); SAMPLE BLOOD; SAO2 97.6 % (95.0-100.0); THB 12.7 g/dL (11.5-17.4); pH(98.6) 7.44 (7.35-7.45)
[2019-01-31 06:31] LABS: ALLEN TEST YES; MODALITY CANNULA
[2019-01-31] MEDS ORDERED: LEVAQUIN 750 MG/D5W 750 MG/150 ML IVPB IV ONE (06:33)
[2019-01-31 06:44] LABS: AGAP 13; ALKALINE PHOSPHATASE 50 U/L (32-104); BUN 9 mg/dL (8-22); CALCIUM 9.3 mg/dL (8.8-10.2); CHLORIDE 101 mmol/L (98-107); CK PROFILE 72 U/L (24-173); COSMO 282; CREATININE 0.7 mg/dL (0.5-0.9); ESTIMATED GFR > 60; GLUCOSE 168 mg/dL (70-104); GOT 21 U/L (10-30); GPT 14 U/L (10-36); POTASSIUM 4.1 mmol/L (3.5-5.1); SODIUM 140 mmol/L (136-145); TCO2 26 mmol/L (25-35); TOTAL PROTEIN 6.2 g/dL (6.3-8.3)
--- NOTE | 2019-01-31 06:47 | Diag Imaging Result Doc PS360 ---
EXAM: CHEST-PORTABLE HISTORY: sob TECHNIQUE: Chest single view COMPARISON: 01/16/2019 FINDINGS: The lungs are well expanded. No cardiomegaly. There are basilar infiltrates on the current exam. No pleural effusions identified. IMPRESSION: Development of basilar infiltrates. Electronically signed by Anurag Simmons 01/31/2019 6:45 AM
[2019-01-31] MEDS: DUONEB (A & A) INH SCH ×5 (08:00→23:27)
[2019-01-31] MEDS ORDERED: TYLENOL PO PRN (08:15)
[2019-01-31] MEDS ORDERED: NS 1,000 ML IV ONE (08:15)
--- NOTE | 2019-01-31 08:37 | EKG Report ---
Test Performed on : 01/31/2019 06:53:25 AM Test Reason : pain Blood Pressure : / mmHG Vent. Rate : 086 BPM Atrial Rate : 086 BPM P-R Int : 152 ms QRS Dur : 092 ms QT Int : 376 ms P-R-T Axes : 069 068 083 degrees QTc Int : 449 ms Normal sinus rhythm. Nonspecific ST and T wave abnormality Abnormal ECG When compared with ECG of 16-JAN-2019 11:13, (Unconfirmed) premature ventricular complexes. are no longer present Minimal criteria for Anterior infarct are no longer present Unconfirmed Result
[2019-01-31] MEDS ORDERED: DUONEB (A & A) INH PRN (08:46)
[2019-01-31] MEDS ORDERED: SYNTHROID PO ONE (08:46)
--- NOTE | 2019-01-31 09:34 | HISTORY AND PHYSICAL ---
PRIMARY CARE PROVIDER: Dr. Mik Lam. CHIEF COMPLAINT: Shortness of breath with wheezing. HISTORY OF PRESENT ILLNESS: Ms. Jeanne Mckeon is a 63-year-old female with a medical history of COPD, who wears 2 L of oxygen at home. Around 2 weeks ago, presented to the emergency department with shortness of breath and wheezing, was given antibiotics, Levaquin, and prednisone taper. She was good for the past week that she has been off of her steroids and antibiotics. Had a great day yesterday, and then today she woke up this morning to go to the bathroom. She checked her oxygen saturation. It was 97%. She went to the bathroom. As she was in the bathroom, she started feeling real short of breath. She got back to the bed. She started her breathing treatment, but it did not get better. She called for help, and was brought into the emergency department, where she appeared to be in respiratory distress with excessive wheezing and shortness of breath. X-ray reveals that she has a right lower lobe pneumonia. Her CO2 is stable. Her pH is normal, so will admit her for COPD exacerbation, along with right lower lobe pneumonia treatment. PAST MEDICAL HISTORY: 1. COPD, continuous 2 L of oxygen. 2. Hypertension. 3. Hypothyroidism. 4. Hyperlipidemia. PAST SURGICAL HISTORY: Cataract removal, hysterectomy, and back surgery. SOCIAL HISTORY: She used to be a smoker. She would not reveal for how long, but she quit 7 years or more ago. Denies alcohol or illicit drug use. She lives at home with her . FAMILY HISTORY: Mother's side of the family, diabetes and colon cancer. Father's side, heart disease that started in his 70s. ALLERGIES: Penicillin that causes hives, and she is also allergic to cats. HOME MEDICATIONS: Have yet to be verified. REVIEW OF SYSTEMS: A 14-point review of systems is complete, and all were negative, except for those mentioned above in the HPI. PHYSICAL EXAMINATION: VITAL SIGNS: Temperature 97.6 degrees, heart rate 95, respiratory rate 22, blood pressure 131/77, O2 saturation 97% on 2 L nasal cannula. GENERAL: Ms. Jeanne Mckeon is a 63-year-old female. She is in no acute distress. She is short of breath. She is able to answer questions appropriately. HEENT: Atraumatic, normocephalic. Pupils equal, round, reactive to light. Extraocular movements are intact. Mucous membranes are dry. NECK: Trachea midline. CARDIOVASCULAR: S1, S2. Regular rate and rhythm. No rubs, gallops, murmurs. No lower extremity edema. There are +2 dorsalis and radial pulses. Negative JVD or carotid bruits. PULMONARY: Expiratory wheezes throughout. Mild accessory muscle use and work of breathing noted. She is on 2 L nasal cannula, tolerating that well. GASTROINTESTINAL: Soft, nontender, nondistended. Positive bowel sounds x4. EXTREMITIES: Moves all extremities equally with full range of motion. NEUROLOGIC: Alert and oriented x3. Follows commands. Sensory is intact. SKIN: Warm, dry, intact. LABORATORY DATA: White blood cells 12,000, hemoglobin 12, hematocrit 39, platelet count 236,000. ABGs on 2 L nasal cannula show pH 7.44, pCO2 is 42, PO2 is 80, bicarb 27, base excess 3.9, saturation 94%. Lactate 1.9. Sodium 140, potassium 4.1, BUN 9, creatinine 0.7, glucose 168, calcium 9.3, bilirubin 0.50. AST 21, ALT 14. CK 72. Troponins less than 0.01. ProBNP is 478. Albumin 4.0. IMAGING: Chest x-ray: Right lower lobe basilar infiltrate. EKG: Normal sinus rhythm, rate 86, QTc 449. ASSESSMENT AND PLAN: 1. Community-acquired right lower lobe pneumonia with recent treatment for chronic obstructive pulmonary disease exacerbation. She is on Levaquin. Will order sputum cultures. She has got nebulizers ordered as well. Will add guaifenesin. 2. Chronic obstructive pulmonary disease exacerbation with normal CO2 and pH. Just expiratory wheezes noted throughout. Again, she is on nebulizers, albuterol, Atrovent, budesonide. We have added acetylcysteine. 3. Hypertension. Continue home medications. 4. Hypothyroidism. Synthroid continued. 5. Hyperlipidemia. Her statin has been continued. 6. Deep venous thrombosis with Lovenox. Dictated by TIFFANI Posey for Luis Alberto Chinchilla MD . Addendum: Patient seen and examined by myself. Agree with TIFFANI note. It reflects my assessment and plan. Patient is admitted to hospital for right lower lobe pna. Will start Levaquin, Duoneb and IV steroids. Will continue with rest of home medications. cc: TIFFANI Posey MD MTDD
[2019-01-31] MEDS: ZIAC 5/6.25 MG PO SCH (10:38)
[2019-01-31] MEDS: ZOLOFT PO SCH (10:39)
[2019-01-31] MEDS: LOVENOX SUBQ SCH (10:40)
[2019-01-31] MEDS ORDERED: SOLU-MEDROL IV SCH (12:00)
[2019-01-31] MEDS: SOLU-MEDROL IV SCH ×3 (12:39→23:47)
[2019-01-31] MEDS: MUCOMYST 20% INH SCH (19:25)
[2019-01-31] MEDS: PULMICORT INH SCH (19:25)
[2019-01-31] MEDS: LIPITOR PO SCH (20:05)
[2019-01-31 21:52] LABS: INR 0.9; PROTIME 12.6 Seconds (11.0-16.0)
[2019-01-31 21:53] LABS: PTT 26.2 Seconds (22.3-41.8)
[2019-02-01 01:08] LABS: BILIRUBIN URINE NEGATIVE (NEGATIVE); BLOOD URINE 4+ (NEGATIVE); CLARITY CLEAR (CLEAR); COLOR YELLOW; KETONE URINE NEGATIVE (NEGATIVE); LEUKOCYTES URINE NEGATIVE (NEGATIVE); NITRITE URINE NEGATIVE (NEGATIVE); PH URINE 6.5; PROTEIN URINE NEGATIVE (NEGATIVE); UROBILINOGEN URINE NORMAL
[2019-02-01 01:14] LABS: URINE BACTERIA 1+ /HFP; URINE CAST NONE SEEN /LPF; URINE CRYSTAL NONE SEEN /HPF; URINE EPITHELIAL CELLS <10 /HPF (<10); URINE RBC <10 /HPF (<10); URINE SOURCE CLEAN CATCH; URINE WBC NS /HPF (<10); URINE YEAST NONE SEEN /HPF
[2019-02-01 03:20] LABS: HEMATOCRIT 37.3 % (37.0-47.0); IMM GRAN# 0.03 X1000 (0.0-0.04); IMM GRAN% 0.3 % (0.0-0.5); LYMPH# 0.48 X1000 (1.2-3.4); MCH 30.2 PG (27-31); MCHC 32.2 g/dL (33-37); MONO# 0.21 X1000 (0.11-0.59); MONO% 2.2 % (1.7-9.3); MPV 8.9 FL (7.4-10.4); NEUT# 8.79 X1000 (1.4-6.5); NEUT% 92.5 % (42.2-75.2); PLT 237 X1000 (130-400); RBC 3.97 XMIL (4.2-5.4); RDW 13.4 % (11.5-14.5); WBC 9.51 X1000 (4.8-10.8)
[2019-02-01 03:39] LABS: AGAP 12; ALBUMIN 3.7 g/dL (3.5-5.0); ALKALINE PHOSPHATASE 45 U/L (32-104); BUN 11 mg/dL (8-22); CALCIUM 9.2 mg/dL (8.8-10.2); CHLORIDE 102 mmol/L (98-107); COSMO 286; CREATININE 0.7 mg/dL (0.5-0.9); ESTIMATED GFR > 60; GLUCOSE 233 mg/dL (70-104); GOT 11 U/L (10-30); GPT 12 U/L (10-36); POTASSIUM 3.5 mmol/L (3.5-5.1); SODIUM 140 mmol/L (136-145); TCO2 26 mmol/L (25-35); TOTAL PROTEIN 6.2 g/dL (6.3-8.3)
[2019-02-01] MEDS: DUONEB (A & A) INH SCH ×6 (04:15→23:24)
[2019-02-01 04:33] LABS: LYMPHS 7 % (21-51); SEGS 93 % (42-75)
[2019-02-01] MEDS: SOLU-MEDROL IV SCH ×3 (05:10→17:07)
[2019-02-01] MEDS: LEVAQUIN 750 MG/D5W 750 MG/150 ML IVPB IV SCH (05:13)
[2019-02-01] MEDS: SYNTHROID PO SCH (06:13)
[2019-02-01] MEDS: PULMICORT INH SCH ×2 (08:01→19:33)
[2019-02-01] MEDS: MUCOMYST 20% INH SCH ×2 (08:02→19:33)
[2019-02-01] MEDS: ZOLOFT PO SCH (08:29)
[2019-02-01] MEDS: LOVENOX SUBQ SCH (08:29)
[2019-02-01] MEDS: ZIAC 5/6.25 MG PO SCH (09:07)
--- NOTE | 2019-02-01 09:24 | Diag Imaging Result Doc PS360 ---
CT THORAX W/CONTRAST - 02/01/2019 INDICATION: pneumonia COMPARISON: Chest x-ray 01/31/2019 FINDINGS: There is no adenopathy. Heart and great vessels are normal. Upper abdominal images are normal. There are couple of tiny scattered benign cysts in the liver. There is severe COPD. There is a small focal infiltrate in the right lower lobe that has improved since the prior chest x-ray. There is some trace scarring in the left lower lobe but no focal infiltrates. Bones are intact and well mineralized. IMPRESSION: Severe COPD. Faint right lower lobe infiltrate that has improved since prior. Mild scarring in the left lower lobe. This exam was performed using automated exposure control, adjustment of mA or kV according to patient size, and/or use of iterative reconstruction technique Electronically signed by Crow Degroot 02/01/2019 9:22 AM
--- NOTE | 2019-02-01 11:29 | PROGRESS NOTE ---
DATE: 02/01/2019 SUBJECTIVE: Patient reports feeling much better. Still mildly short of breath but much better in comparing with yesterday. OBJECTIVE: Vital Signs: Temperature 97.7 degrees, heart rate 94, respiratory 22, blood pressure 143/82, O2 saturation 96% on 2 L nasal cannula. General Examination: This is a 63-year-old female lying in bed, in no acute distress. Cardiovascular: S1, S2 heard. No murmurs, gallops, or rubs. Regular rate and rhythm. Respiratory: Wheezing all over both pulmonary bases but better in comparing with yesterday. Patient is not using any accessory muscles or having work of breathing. Abdomen: Soft, nontender to palpation. Bowel sounds present. No organomegaly. Extremities: No clubbing, cyanosis, or edema. Peripheral pulses present in both legs. Neurological: Patient alert and oriented x3. Moves 4 extremities. LABORATORY DATA: Reviewed. ASSESSMENT AND PLAN: 1. Right lower lobe pneumonia, community acquired. We will continue with current treatment in this case with Levaquin, breathing treatment and steroid. 2. Chronic obstructive pulmonary disease exacerbation. We will continue with current management. 3. Hypertension. Blood pressure is under control. We will continue with same medication. 4. Hypothyroidism. Will continue home doses of Synthroid. 5. Hyperlipidemia. We will continue with the statin. 6. Disposition. I think patient is feeling better. We can discharge her tomorrow. cc: Luis Alberto Chinchilla MD
[2019-02-01] MEDS: LIPITOR PO SCH (21:06)
[2019-02-02] MEDS: SOLU-MEDROL IV SCH ×4 (00:01→21:24)
[2019-02-02] MEDS: DUONEB (A & A) INH SCH ×6 (03:14→23:13)
[2019-02-02] MEDS: LEVAQUIN 750 MG/D5W 750 MG/150 ML IVPB IV SCH (06:14)
[2019-02-02] MEDS: SYNTHROID PO SCH (06:15)
[2019-02-02 06:41] LABS: BASO# 0.01 X1000 (0.0-0.2); BASO% 0.1 % (0.0-0.8); HEMATOCRIT 36.6 % (37.0-47.0); HEMOGLOBIN 11.6 g/dL (12.0-16.0); IMM GRAN# 0.05 X1000 (0.0-0.04); IMM GRAN% 0.3 % (0.0-0.5); LYMPH# 0.44 X1000 (1.2-3.4); LYMPH% 2.7 % (20.5-51.1); MCH 30.1 PG (27-31); MCHC 31.7 g/dL (33-37); MCV 94.8 FL (81-99); MONO# 0.66 X1000 (0.11-0.59); MPV 9.8 FL (7.4-10.4); NEUT# 15.17 X1000 (1.4-6.5); NEUT% 92.9 % (42.2-75.2); PLT 230 X1000 (130-400); RBC 3.86 XMIL (4.2-5.4); RDW 13.6 % (11.5-14.5); WBC 16.33 X1000 (4.8-10.8)
[2019-02-02 06:47] LABS: SEGS 94 % (42-75)
[2019-02-02 06:48] LABS: ANISOCYTOSIS 1+; LARGE PLATELETS OCCASIONAL; LYMPHS 6 % (21-51); OVALOCYTES 1+; POIKILOCYTOSIS 1+
[2019-02-02 06:55] LABS: AGAP 8; ALBUMIN 3.9 g/dL (3.5-5.0); ALKALINE PHOSPHATASE 45 U/L (32-104); BUN 18 mg/dL (8-22); CALCIUM 9.7 mg/dL (8.8-10.2); CHLORIDE 101 mmol/L (98-107); COSMO 288; CREATININE 0.8 mg/dL (0.5-0.9); ESTIMATED GFR > 60; GLUCOSE 254 mg/dL (70-104); GOT 13 U/L (10-30); GPT 12 U/L (10-36); POTASSIUM 3.7 mmol/L (3.5-5.1); SODIUM 139 mmol/L (136-145); TCO2 30 mmol/L (25-35); TOTAL PROTEIN 5.9 g/dL (6.3-8.3)
[2019-02-02] MEDS: PULMICORT INH SCH ×2 (07:52→19:35)
[2019-02-02] MEDS: MUCOMYST 20% INH SCH ×2 (07:53→19:36)
[2019-02-02] MEDS: ZOLOFT PO SCH (08:37)
[2019-02-02] MEDS: ZIAC 5/6.25 MG PO SCH (08:37)
[2019-02-02] MEDS: LOVENOX SUBQ SCH (08:38)
[2019-02-02] MEDS ORDERED: SYNTHROID PO SCH (09:00)
[2019-02-02] MEDS ORDERED: LIPITOR PO SCH (09:00)
[2019-02-02] MEDS ORDERED: ZOLOFT PO SCH (09:00)
[2019-02-02] MEDS: LIPITOR PO SCH (20:26)
--- NOTE | 2019-02-02 21:37 | PROGRESS NOTE ---
DATE: 02/02/2019 SUBJECTIVE: The patient notes her breathing is a lot better. Denies any fevers or chills. Still having some shortness of breath with any activity. She does have oxygen at home. OBJECTIVE: Temperature 98, pulse 106, respiratory rate 18, BP 121/57.General: The patient is an elderly female who is in mild current respiratory distress, but I feel as though this may be her baseline. HEENT: Normocephalic. Neck supple. Cardiovascular: Regular rate. Chest: Decreased but equal breath sounds. Faint wheezing bilaterally. No crackles. No rhonchi. Abdomen is soft, nondistended, nontender. Extremities: Moves all extremities. No edema. Neurologic: No changes. ASSESSMENT: 1. Right lower lobe pneumonia. 2. Chronic obstructive pulmonary disease with exacerbation. 3. Hypertension. 4. Hypothyroidism. 5. Hyperlipidemia. PLAN: The patient currently is on 60 of Solu-Medrol IV q.6. We are going to decrease this to 40 IV q.8. If she tolerates it, hopefully she can discharge home tomorrow. Her white count has actually gone up from 9 to 16, but I feel as though this is due to steroid effect, as clinically she has improved. We are going to change her Levaquin over to p.o. Again, hopefully home in the a.m. cc: Andrez Stuart MD
[2019-02-03] MEDS: DUONEB (A & A) INH SCH ×2 (03:43→08:07)
[2019-02-03 05:38] LABS: BASO# 0.01 X1000 (0.0-0.2); BASO% 0.1 % (0.0-0.8); HEMATOCRIT 39.4 % (37.0-47.0); HEMOGLOBIN 12.7 g/dL (12.0-16.0); IMM GRAN# 0.15 X1000 (0.0-0.04); IMM GRAN% 0.8 % (0.0-0.5); LYMPH# 0.58 X1000 (1.2-3.4); MCH 30.5 PG (27-31); MCHC 32.2 g/dL (33-37); MCV 94.7 FL (81-99); MONO# 0.73 X1000 (0.11-0.59); MONO% 3.8 % (1.7-9.3); MPV 9.3 FL (7.4-10.4); NEUT# 17.62 X1000 (1.4-6.5); NEUT% 92.3 % (42.2-75.2); PLT 273 X1000 (130-400); RBC 4.16 XMIL (4.2-5.4); RDW 13.6 % (11.5-14.5); WBC 19.09 X1000 (4.8-10.8)
[2019-02-03 05:49] LABS: AGAP 16; ALKALINE PHOSPHATASE 45 U/L (32-104); BUN 19 mg/dL (8-22); CALCIUM 9.8 mg/dL (8.8-10.2); CHLORIDE 97 mmol/L (98-107); COSMO 288; CREATININE 0.8 mg/dL (0.5-0.9); ESTIMATED GFR > 60; GLUCOSE 209 mg/dL (70-104); GOT 14 U/L (10-30); GPT 16 U/L (10-36); POTASSIUM 3.5 mmol/L (3.5-5.1); SODIUM 140 mmol/L (136-145); TCO2 27 mmol/L (25-35); TOTAL PROTEIN 6.4 g/dL (6.3-8.3)
[2019-02-03] MEDS: SOLU-MEDROL IV SCH (06:06)
[2019-02-03] MEDS: SYNTHROID PO SCH (06:06)
[2019-02-03 07:37] LABS: LYMPHS 9 % (21-51); MONO 1 % (1-9); SEGS 90 % (42-75)
[2019-02-03 07:53] VITALS: BP 158/77
[2019-02-03] MEDS: PULMICORT INH SCH (08:07)
[2019-02-03] MEDS: MUCOMYST 20% INH SCH (08:08)
[2019-02-03] MEDS: ZIAC 5/6.25 MG PO SCH (08:31)
[2019-02-03] MEDS: LOVENOX SUBQ SCH (08:31)
[2019-02-03] MEDS: ZOLOFT PO SCH (08:31)
[2019-02-03] MEDS ORDERED: LEVAQUIN PO SCH (09:00)
--- NOTE | 2019-02-04 18:44 | DISCHARGE SUMMARY ---
ADMISSION DATE: 01/31/2019 DISCHARGE DATE: 02/03/2019 DISCHARGE DIAGNOSES: 1. Right lower lobe pneumonia, community-acquired, improved. 2. Chronic obstructive pulmonary disease, severe, with mild exacerbation, improved. 3. Hypertension. 4. Hypothyroidism. 5. Hyperlipidemia. 6. Leukocytosis. CONSULTATIONS: None. PROCEDURES: None. BRIEF HOSPITAL COURSE: The patient is a 63-year-old female who presented to the hospital, treated in the usual fashion, placed on antibiotics, breathing treatments, oxygen, and Solu-Medrol. We were able to wean her Solu-Medrol down to 40 IV every 12 hours prior to discharge and she continued to improve. DISPOSITION: Patient will be discharged home. She will continue to follow up outpatient with her primary care. Again discussed with her the perils of smoking, smoke exposure, as well as strong chemical and perfume exposure. Overall, patient has improved. We will discharge her home with a Medrol Dosepak, antibiotics. She has oxygen at home. We will continue her breathing treatments. Further orders as needed. Greater than 30 minutes was spent in total care. cc: Andrez Stuart MD
== END 2019-02-03 10:39 | disposition home or self-care (01) | DRG 190 ==
LOC: P.ED 05:47 → SUATTDRO 05:48 → P.MEDSURG 05:48
PROVIDERS: ATTEND Family Medicine